=== PATIENT | female | born 1955 | race Caucasian/White ===

== ENCOUNTER 2017-12-19 18:41 | Emergency (ER) | payer OTHER, SELFPAY ==
[2017-12-19 18:42] VITALS: BP 151/86; PULSE 76; RESP 15; TEMP 36.4; O2SAT 99; BMI 21.4
--- NOTE | 2017-12-19 19:06 | EKG12_ITS ---
Test Reason : DIZZINESS Blood Pressure : / mmHG Vent. Rate : 076 BPM Atrial Rate : 076 BPM P-R Int : 192 ms QRS Dur : 090 ms QT Int : 380 ms P-R-T Axes : 060 -39 072 degrees QTc Int : 427 ms Normal sinus rhythm Left axis deviation Abnormal ECG Confirmed by ZAK CHURCH, TAYLA ([id number]), development editor HALIE PABON ([id number]) on 12/21/2017 11:25:58 AM Referred By: DR BOURGEOIS Confirmed By:TAYLA CRESPO MD
[2017-12-19] MEDS: 0.9% Normal Saline 1,000 ML 1000 ML IV (19:27)
[2017-12-19] MEDS: Ondansetron 4 MG/2 ML Vial IV (19:27)
[2017-12-19 19:30] LABS: Absolute Lymphocyte Count 2.15 X10^3/ul (0.83-4.51); Absolute Neutrophil Count 4.5 X10^3/uL (2.0-7.7); Basophil# 0.02 X10^3/uL; Basophil% 0.3 % (0-1); Eosinophil# 0.09 X10^3/uL; Eosinophils% 1.2 % (0-5); Hematocrit 38.1 % (37-47); Hemoglobin 13.1 g/dl (12.0-15.0); Lymphocyte # 2.15 X10^3/ul (4.0); Lymphocyte % 28.9 % (19-41); Mean Corp Hgb Conc 34.4 g/gl (32-36); Mean Corpuscular Hgb 32.1 pg (27.0-32.0); Mean Corpuscular Volume 93.4 fL (81-99); Mean Platelet Vol. 9.7 fl (6.2-12.0); Monocyte# 0.67 X10^3/uL; Neutrophil # 4.51 X10^3/uL (2.7-7.7); Neutrophil % 60.6 % (47-70); POSITIVE COUNT NO; POSITIVE DIFFERENTIAL NO; POSITIVE MORPHOLOGY NO; Platelet Count 188 K/mm3 (150-450); RBC Distribution Width CV 13.3 % (11.6-14.6); RBC Distribution Width SD 45.1 fl (35.1-43.9); Red Blood Count 4.08 M/mm3 (4.2-5.4); White Blood Count 7.4 K/mm3 (4.4-11.0)
[2017-12-19 19:31] VITALS: BP 138/77; PULSE 71; RESP 21; O2SAT 99
[2017-12-19 19:44] LABS: Anion Gap 7 (5-15); BUN 21 mg/dL (7-18); BUN/Creat Ratio 25.3 RATIO (10-20); Calcium,Total 8.6 mg/dL (8.5-10.1); Chloride 98 mmol/L (98-107); Creatinine, Serum 0.83 mg/dL (0.55-1.02); EST Glomerular Filtration Rate 74 mL/min (>60); Est Glom Filt Rate - Afr Amer 89 mL/min (>60); Estimated Creatinine Clearance 54.87 ml/min; Glucose 99 mg/dL (74-106); Potassium 3.7 mmol/L (3.5-5.1); Sodium Level 131 mmol/L (136-145)
--- NOTE | 2017-12-19 20:24 | ED.VISSUMM ---
- ER Visit Summary Date of Service: 12/19/17 Chief Complaint: Dizzy, near syncope History of Present Illness: The patient is a 62 F who reports dizzy episodes with near syncope for the past 2 years. She states the episodes are becoming more frequent and now are occurring nearly weekly. Patient states that she gets tingling in her back at the onset of symptoms. She had previously been helped with chiropractic manipulation. She had another dizzy episode tonight. She states she laid down on the bed before she passed out. She denies palpitations or chest pain during these episodes. She is does state that her doctor had previously mentioned following up with a neurologist for further workup, but her symptoms seem to improve at that time and she never followed up with neurology. Physical Examination: Blood pressure is 151/86, temperature 97.6, heart rate 76, respiratory rate 15, pulse ox 99% on room air. Patient is sitting upright in bed. She is in no acute distress. Head neck examination reveals TMs to be clear bilaterally. Neck is supple. Heart is regular rate and rhythm. Lung sounds clear. Abdomen is soft nontender. Back examination reveals tenderness in the thoracic paraspinal muscles bilaterally. Neuro exam is unremarkable. Test Results: EKG is sinus at 76 with no sign of acute ischemia. Patient was watched on account services associate with no arrhythmias. CBC is unremarkable. Chemistry studies significant for a sodium of 131. Emergency Department Course and Treatment: Patient was given IV fluids along with Zofran. On repeat evaluation she does feel improved. She has an appointment with her primary care physician in 3 days. She will talk with him about imaging of her neck and back as we discussed MRI would be the modality of choice. She will also discuss with him the possibility of following up with a neurologist. Treatment Plan: [] Disposition: Discharge Impression: 1. Dizziness, improved 2. Near syncope This note was generated with [employer] dictation software. It may contain incorrect words, spelling, and punctuation that were not noted in review of the chart prior to signing ED Disposition - Plan for ED Patient: Chief Complaint: Dizziness Referrals: Jose Garcia DO [Primary Care Provider] -
--- NOTE | 2017-12-19 20:28 | ED.DEP ---
ED Disposition - Plan for ED Patient: Disposition: Home or Assisted Living Chief Complaint: Dizziness Instructions: ED Near Syncope Unkn, ED Dizziness UKO Prescriptions: Ondansetron [Zofran Odt] 4 mg PO Q8H PRN PRN #10 tablet PRN Reason: Nausea Referrals: Jose Garcia DO [Primary Care Provider] - Keep Griselda appointment
[2017-12-19] MEDS: Ondansetron ODT 4 MG Tablet PO (20:44)
[2017-12-19 20:51] VITALS: BP 131/79; PULSE 71; RESP 16; O2SAT 97
== END 2017-12-19 20:52 | disposition home or self-care (01) ==
PROVIDERS: Emergency Provider Emergency Medicine; Family Provider Family Medicine; PCP Family Medicine
DX: R42 Dizziness and giddiness (principal); R55 Syncope and collapse; Z87.891 Personal history of nicotine dependence
CPT/HCPCS: 80048; 85025; 93005; 96361; 96374; 99284; J7030; A4216; J2405

== ENCOUNTER → 2018-01-18 08:59 | Outpatient (CLI) | payer OTHER, SELFPAY ==
[2017-12-19 18:42] VITALS: BMI 21.4
[2018-01-18 09:18] LABS: Hematocrit 37.6 % (37-47); Hemoglobin 13.1 g/dl (12.0-15.0); Mean Corp Hgb Conc 34.8 g/gl (32-36); Mean Corpuscular Volume 94.7 fL (81-99); Mean Platelet Vol. 9.4 fl (6.2-12.0); Platelet Count 227 K/mm3 (150-450); RBC Distribution Width CV 13.1 % (11.6-14.6); RBC Distribution Width SD 44.1 fl (35.1-43.9); Red Blood Count 3.97 M/mm3 (4.2-5.4); White Blood Count 6.3 K/mm3 (4.4-11.0)
[2018-01-18 09:25] LABS: Scan Indicated on CBC? Y/N NO
[2018-01-18 09:41] LABS: Anion Gap 3 (5-15); BUN 15 mg/dL (7-18); BUN/Creat Ratio 17.7 RATIO (10-20); Calcium,Total 8.9 mg/dL (8.5-10.1); Chloride 102 mmol/L (98-107); Creatinine, Serum 0.85 mg/dL (0.55-1.02); EST Glomerular Filtration Rate 72 mL/min (>60); Est Glom Filt Rate - Afr Amer 87 mL/min (>60); Glucose 88 mg/dL (74-106); Potassium 4.4 mmol/L (3.5-5.1); Sodium Level 134 mmol/L (136-145)
--- NOTE | 2018-01-18 17:30 | PCM.TILTTABL ---
- Summary Pre Test Resting HR: 78 Pre Test Resting BP: 144/77 Minimum Test HR: 71 Maximum Test HR: 80 Minimum Test BP: 113/67 Maximum Test BP: 138/75 Physician Tilt Table Report - Patient's Physicians Primary Care Physician: Jose Garcia Indications/Diagnosis: Syncope Procedure Comments: The patient was brought to the noninvasive lab in the postabsorptive state the initial blood pressure was 144/77 mmHg with a heart rate of 78 bpm. The initial electrocardiogram demonstrated sinus rhythm with a rate of 68 bpm with a blood pressure 156/78 mmHg. The patient was then put in the 70 degree head upright tilt position with continuous EKG monitoring as well as heart rate monitoring. The patient's heart rate ranged between 71 and 80. The patient's blood pressure was also normal and the patient did not experience any symptoms. Summary: Negative head upright tilt table test.
[2018-01-18 17:49] VITALS: BP 113/67; BP 138/75; BP 144/77
== END ==
PROVIDERS: Family Provider Family Medicine; PCP Family Medicine; Referring Provider Psychiatry & Neurology Neurology; Visit Provider Psychiatry & Neurology Neurology
DX: R55 Syncope and collapse (principal)
CPT/HCPCS: 36415; 80048; 85027; 93660; J7040; A4216

== ENCOUNTER 2018-04-01 14:23 | Emergency (ER) | payer OTHER, SELFPAY ==
[2018-04-01 14:24] VITALS: BP 147/84; PULSE 82; RESP 16; TEMP 36.8; O2SAT 93; BMI 23.2
[2018-04-01] MEDS: Ondansetron 4 MG/2 ML Vial IV (14:52)
[2018-04-01] MEDS: Ketorolac 15 MG/ML Vial IV (14:52)
[2018-04-01 15:03] LABS: Absolute Neutrophil Count 3.8 X10^3/uL (2.0-7.7); Basophil# 0.01 X10^3/uL; Basophil% 0.1 % (0-1); Eosinophil# 0.09 X10^3/uL; Eosinophils% 1.3 % (0-5); Hematocrit 38.2 % (37-47); Hemoglobin 12.7 g/dl (12.0-15.0); Mean Corp Hgb Conc 33.2 g/gl (32-36); Mean Corpuscular Hgb 31.6 pg (27.0-32.0); Mean Platelet Vol. 9.9 fl (6.2-12.0); Monocyte# 0.58 X10^3/uL; Monocyte% 8.5 % (0-10); Neutrophil # 3.76 X10^3/uL (2.7-7.7); Platelet Count 213 K/mm3 (150-450); RBC Distribution Width CV 13.1 % (11.6-14.6); RBC Distribution Width SD 45.4 fl (35.1-43.9); Red Blood Count 4.02 M/mm3 (4.2-5.4); White Blood Count 6.9 K/mm3 (4.4-11.0)
[2018-04-01 15:04] LABS: POSITIVE COUNT NO; POSITIVE DIFFERENTIAL NO; POSITIVE MORPHOLOGY NO
[2018-04-01 15:12] LABS: Anion Gap 10 (5-15); BUN 14 mg/dL (7-18); BUN/Creat Ratio 16.7 RATIO (10-20); Calcium,Total 8.7 mg/dL (8.5-10.1); Chloride 103 mmol/L (98-107); Creatinine, Serum 0.84 mg/dL (0.55-1.02); EST Glomerular Filtration Rate 73 mL/min (>60); Est Glom Filt Rate - Afr Amer 88 mL/min (>60); Estimated Creatinine Clearance 54.22 ml/min; Glucose 97 mg/dL (74-106); Potassium 4.3 mmol/L (3.5-5.1); Sodium Level 138 mmol/L (136-145)
[2018-04-01 15:20] VITALS: BP 156/76; BP 163/80; BP 180/89; PULSE 67; PULSE 74; PULSE 75
[2018-04-01] MEDS: diazePAM 5 MG Tablet 2.5 MG PO (15:36)
--- NOTE | 2018-04-01 16:32 | ED.VISSUMM ---
- ER Visit Summary Date of Service: 04/01/18 Chief Complaint: Dizziness and occipital head pain History of Present Illness: The patient is a 62 F who has history of chronic vertigo. She is presently being seen by Dr. Calderón. 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 Patient states she was not told she had benign positional vertigo. She denies ringing or ears. She denies ear pain or decreased hearing. She states that she has had this problem for 2.5 years. She has had a CAT scan, MRI and other testing which were all negative. Her description of dizziness; however is lightheadedness. She does complain of occipital pain. She states she normally has pressure. Her neck is not stiff. She does report some sensitivity to light. She denies double vision, blurred vision or loss of vision. She denies trouble with speech or swallowing. She denies trouble using her arms or legs. She does not describe falling to one side. She denies hematemesis, no hematochezia. She denies fever, chills night sweats. She does report nausea without vomiting. He does report neck discomfort. He denies neck stiffness. She has no other complaints. Physical Examination: Vital signs noted and blood pressure is slightly elevated at 147/84. Head is atraumatic normocephalic. Pupils are equal round reactive. Extraocular muscles are intact. Funduscopic exam reveals normal cup-to-disc ratio. There is no papilledema. There is no tenderness over the temporal arteries. TMs are pearly white with landmarks noted. Nares patent with no drainage. Posterior pharynx without erythema or exudate. Uvula is midline. There is no dysphonia or dysphasia. Trachea is midline. There is no stridor with auscultation of the neck. Neck is supple. Heart is regular without murmur, gallop or rub. S1 and S2 are normal. Lungs are clear to auscultation with good movement of air bilaterally. Patient is alert and oriented ?3. Motor is 5 over 5. Sensory is intact. DTRs are symmetric with no clonus or Babinski sign. Cranial 2 through 12 are intact. Cerebellar testing is normal. Test Results: CBC normal. Electric panels unremarkable. Emergency Department Course and Treatment: IV was established. She was treated with Toradol and Zofran. She reported improvement. Orthostatic vital signs were performed and are negative. [place]-Hallpike maneuver was performed and patient had symptoms but there is no nystagmus. She does report the dizziness resolves with her eyes closed. Patient did receive Valium p.o. since she does have a component of positional vertigo. Patient was reassessed at 1650. She has minimal vertex discomfort. The vertigo has resolved. Treatment Plan: 3-day course of Valium and follow-up with neurologist Disposition: Discharged home in stable and improved condition Impression: 1. Vertigo 2. Occipital headache This note was generated with [employer] software. It may contain incorrect words, spelling, and punctuation that were not noted in review of the chart prior to signing ED Disposition - Plan for ED Patient: Disposition: Home or Assisted Living Instructions: ED BPV Vertigo Prescriptions: Diazepam [Valium] 2 mg PO TID #10 tab Referrals: Jose Garcia DO [Primary Care Provider] - Dario Logan MD [STAFF PHYSICIAN] - 1 Week
[2018-04-01 16:39] LABS: Erythrocyte Sedimentation Rate 25 mm/hr (0-30)
[2018-04-01 17:06] VITALS: BP 154/72; PULSE 75; RESP 17; O2SAT 99
--- NOTE | 2018-04-01 17:06 | ED.RN ---
IV DC'ED, CATHETER INTACT, SMALL GAUZE DRESSING PLACED. DISCHARGE INSTRUCTIONS GIVEN TO AND REVIEWED WITH PATIENT, PATIENT DENIES QUESTIONS OR CONCERNS AND VOICES UNDERSTANDING OF DISCHARGE INSTRUCTIONS. PT AMBULATES OUT OF ROOM WITHOUT ISSUE.
== END 2018-04-01 17:07 | disposition home or self-care (01) ==
PROVIDERS: Emergency Provider Emergency Medicine; Family Provider Family Medicine; PCP Family Medicine
DX: R42 Dizziness and giddiness (principal); R51 Headache; Z72.0 Tobacco use; M54.2 Cervicalgia; R11.0 Nausea
CPT/HCPCS: 80048; 85025; 85652; 96374; 96375; 99284; A4216; J2405

== ENCOUNTER → 2018-05-13 07:54 | Outpatient (CLI) | payer OTHER, SELFPAY ==
--- NOTE | 2018-05-13 08:01 | CDU_ITS ---
Reason For Study: DIZZINESS Rt. Velocities/BP Lt. Velocities/BP Prox CCA 86.8/21.7 cm/sec. Prox CCA 97.9/18.8 cm/sec. Mid CCA 88.5/22.3 cm/sec. Mid CCA 93.8/19.3 cm/sec. Dist CCA 79.2/21.1 cm/sec. Dist CCA 83.3/17.0 cm/sec. Prox ICA 90.3/17.0 cm/sec. Prox ICA 93.2/27.6 cm/sec. Mid ICA 80.9/23.5 cm/sec. Mid ICA 92.0/34.0 cm/sec. Dist ICA 93.8/25.7 cm/sec. Dist ICA 108.0/32.2 cm/sec. Rt. ICA/CCA = 1.1. Lt. ICA/CCA = 1.2. Prox ECA 96.2/15.8 cm/sec. Prox ECA 97.9/18.2 cm/sec. Rt. Vert. 53.4/15.2 cm/sec. Lt. Vert. 50.4/15.8 cm/sec. Right Extracranial There is no significant atherosclerotic plaque noted in the right common carotid artery. There is no significant atherosclerotic plaque noted in the right internal carotid artery. There is no significant atherosclerotic plaque noted in the right external carotid artery. Antegrade flow is noted in the right vertebral artery. Left Extracranial There is intimal thickening but no significant atherosclerotic plaque noted in the left common carotid artery. There is intimal thickening but no significant atherosclerotic plaque noted in the left internal carotid artery. There is heterogeneous, irregular atherosclerotic plaque noted in the left external carotid artery. Antegrade flow is noted in the left vertebral artery. Procedure Carotid Duplex [id number]. Exam performed in department. Interpretation Summary No significant atherosclerotic plaque or stenosis noted in the internal carotid arteries bilaterally. Flow within the vertebral arteries is antegrade bilaterally. Ordering Physician: Dario Logan Referring Physician: Dario Logan Performed By: Lucero Cardoso RVT
== END ==
PROVIDERS: Family Provider Family Medicine; PCP Family Medicine; Referring Provider Psychiatry & Neurology Neurology; Visit Provider Psychiatry & Neurology Neurology
DX: R55 Syncope and collapse (principal)
CPT/HCPCS: 93880; 95819

== ENCOUNTER 2018-05-13 12:30 | Outpatient (RCR) | payer OTHER, SELFPAY ==
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
--- NOTE | 2018-04-06 13:36 | HP.PTREVAL ---
Dario Logan MD, It has been my pleasure to treat PAMELA FINK over the last 5 visits for vertigo, cervicogenic possibly, BPV. Please see the progress note below for an update on the physical therapy plan of care! Subjective: Was clean and good to go, working out again, VNG was clean and neuro released. Then had dizzy spell this past wednesday while dusting dresser and went to ER. Pt scheduled back in to PT prior to seeing neuro next week. Did no testing in hospital b/c she had it prior. Been dizzy ever since wednesday. TO Dr. Logan Wednesday. Objective/Function: neck ROM min limited in rotation and painful L 55 degrees, ext is 45 and very tender in L subocc muscles. Oculomotor is unremarkable except VOR gets challenging after 30 sec and makes her dizzy. - B hallpike and - roll test today. Plan Plan: Pt to see doctor Wednesday due to her suddenly worsening symptoms after being good for a long time. She will do vOR ex and plan in PT is to progress to cervical STM, US and ROM/stretching if no other treatment waraanted by doctor as wella s monitor and progress VOR. Pt to call after doctor visit and likely 2x/week for 2-4 for neck. Goals Goal 1:: Abolish vertigo Goal Time Frame: 4-6 Weeks Goal Progress: Progressing Goal 2:: Neck pain and BAILEY 75% improved. Goal Time Frame: 4-6 Weeks Goal Progress: Goal Met Anticipated Interventions Patient/Client Instruction: Educate patient on: Condition, Plan of Care For the Purpose of:: To decrease pain, To increase tolerance to activity/condition/position Therapeutic Exercise to Include: Postural training Comment: positional, adaptation, ROM neck For the Purpose of:: To increase ROM, To increase tolerance to activity/condition/position, To decrease level of supervision to perform tasks Manual Therapy Techniques to Include: Passive ROM, Soft tissue mobilization For the Purpose of:: To decrease pain, To increase ROM Please do not hesitate to contact me at [phone] by phone or if you have questions or concerns regarding this new plan of care! Sincerely, Randal Guadalupe, DPT, OCS, CSCS
--- NOTE | 2018-04-15 10:03 | HP.PTREVAL ---
Dario Logan MD, It has been my pleasure to treat PAMELA FINK over the last 6 visits for vertigo, cervicogenic possibly, BPV. Please see the progress note below for an update on the physical therapy plan of care! Subjective: Doing OK, minimal symptoms of dizzyness but present. Doctor wants us to treat the neck Objective/Function: good c/s ROM but very tender R c/s paraspinals. Plan Plan: 2x/week for 3-6 weeks. 1. US R paraspinals. 2. stretch R necka dn teach for HEP. 3. manual traction progress to supine. 4. monitor home c/s retraction effects and postural strength cervical strength. 4. sTM to R c/s Goals Goal 1:: Abolish vertigo Goal Time Frame: 4-6 Weeks Goal Progress: Progressing Goal 2:: Neck pain and BAILEY 75% improved. Goal Time Frame: 4-6 Weeks Goal Progress: appropriate Goal 3:: Pateint feel 90% back to normal from neck and vertigenous feelings. Goal Time Frame: 4-6 Weeks Goal Progress: new goal Anticipated Interventions Patient/Client Instruction: Educate patient on: Condition, Plan of Care For the Purpose of:: To decrease pain, To increase tolerance to activity/condition/position Therapeutic Exercise to Include: Postural training Comment: positional, adaptation, ROM neck For the Purpose of:: To increase ROM, To increase tolerance to activity/condition/position, To decrease level of supervision to perform tasks Manual Therapy Techniques to Include: Passive ROM, Soft tissue mobilization For the Purpose of:: To decrease pain, To increase ROM Please do not hesitate to contact me at [phone] by phone or if you have questions or concerns regarding this new plan of care! Sincerely, Randal Guadalupe, DPT, OCS, CSCS
--- NOTE | 2018-05-15 10:09 | EEG ---
- Electroencephalogram Date of service 05/13/2018 History EEG is being done in this 63 yr F to rule out seizures EEG Description: This is an 18 channel EEG with 10-20 lead placement system. Bipolar montages, Referential and Circumferential montages were reviewed. Photic stimulation and Hyperventilation were performed. The posterior dominant rhythm is 10 HZ synchronous, symmetric, reacting to eye opening and closing. Photic stimulation elicited normal driving response but no abnormal photoparoxysmal response, Hyperventilation did not elicit any abnormal photoparoxysmal response. Sleep was identified. There is no abnormal background slowing noted. There was no epileptiform discharges or electrographic seizures noted during this recording. EEG Interpretation This is a normal awake and asleep EEG. There is no epileptiform discharges or electrographic seizures noted during the record.
--- NOTE | 2018-06-01 13:38 | HP.PTDCSUM_ITS ---
HP - PT D/C Summary It has been my pleasure to treat PAMELA FINK under orders from Dario Logan MD, for the diagnosis of vertigo, cervicogenic possibly, BPV for a total of 14 visit(s). Discharge Date: Please see the following information for a summary of their discharge status. - Subjective Subjective: Better, 92% better. Just a couple glitches here and there. No reason but numerous quick movements per day may cause it. - Pain neck/head pain Pain Intensity (Out of 10): Unrated - Overall Improvement % Improvement: 92 - Objective Objective/Function: dam tender assistant R UT adn into cervical paraspinals. VOR causes symptoms with head movement but not on stool turning full body without neck movement. Full UE and cervical AROM without increased pain. Palpation to knot R UT seems to bring on transient symptoms. OVERALL MUCH BETTER AND WISHES TO TRY TO CONTINUE ON OWN WITH STRETCHES. - Goals Goal 1:: Abolish vertigo Goal Progress: Progressing Goal 2:: Neck pain and BAILEY 75% improved. Goal Progress: appropriate Goal 3:: Pateint feel 90% back to normal from neck and vertigenous feelings. Goal Progress: new goal - Plan Plan: Pt called and cancelled f/u stating she was doing better. Will discontinue at this point as patient is doing well at 92% better at last visit and doing home adaptation exercises. - D/C Information If there are questions or concerns regarding this patient's physical therapy, please feel free to call me at [phone]. Thank you for the referral of this patient. Sincerely, Randal Guadalupe, DPT, OCS, CSCS
== END 2018-05-13 19:00 | disposition home or self-care (01) ==
LOC: PT 12:30
PROVIDERS: Family Provider Family Medicine; PCP Family Medicine; Referring Provider Psychiatry & Neurology Neurology; Visit Provider Psychiatry & Neurology Neurology
DX: R42 Dizziness and giddiness (principal); M54.2 Cervicalgia; M50.30 Other cervical disc degeneration, unspecified cervical region
CPT/HCPCS: 97012; 97035; 97110; 97140; 97162; 97530

== ENCOUNTER 2019-04-12 15:23 | Emergency (ER) | payer OTHER, SELFPAY ==
[2019-04-12] VITALS (7 sets, daily range): BP systolic 143–161; BP diastolic 70–94; PULSE 64–85; RESP 17–21; TEMP 36.5–36.9; O2SAT 94–98; BMI 21.9
--- NOTE | 2019-04-12 15:36 | EKG12_ITS ---
Test Reason : WEAKNESS Blood Pressure : / mmHG Vent. Rate : 072 BPM Atrial Rate : 072 BPM P-R Int : 192 ms QRS Dur : 086 ms QT Int : 406 ms P-R-T Axes : 069 003 075 degrees QTc Int : 444 ms Normal sinus rhythm Normal ECG Confirmed by AMADOR PACKER ([id number]), video editor YOSSI HUERTA ([id number]) on 04/17/2019 3:57:13 PM Referred By: JOSE Confirmed By:AMADOR PACKER
--- NOTE | 2019-04-12 15:36 | RAD_ITS ---
STUDY: X-RAY CHEST REASON FOR EXAM: Female, 64 years old. SHORTNESS OF BREATH, WEAKNESS, FATIGUE. TECHNIQUE: Single AP portable view of the chest. COMPARISON: Comparison is made with prior examination of October 25, 2016. FINDINGS: Hyperinflation. Azygos lobe. Scattered calcified granulomas. There is no demonstrated pleural abnormality. Normal size heart. Normal mediastinum and suze. Normal visualized pulmonary arteries. There is atherosclerotic calcification of the aortic arch with tortuosity. Normal visualized thoracic spine. Normal visualized ribs, clavicles, and shoulders. There is no demonstrated abnormality of the visualized soft tissue structures of the upper abdomen. RAD/Chest 1 View (Portable) IMPRESSION: No acute abnormality is seen. Electronically Signed: Bebeto Reyes, at 15:56 EST , Service support ,
--- NOTE | 2019-04-12 15:37 | ED.VISSUMM ---
- ER Visit Summary Date of Service: 04/12/19 Chief Complaint: Weakness, cough History of Present Illness: The patient is a 64 F who presents with weakness and cough. She has had this for about 1 week. She went to an urgent care this week and got doxycycline for pneumonia. She denies a fevers but is felt very chilled. She aches in her back and in her legs. She feels generally weak overall. No slurred speech or facial droop. She did not get a flu shot this year. Has not taken any Motrin or Tylenol today. Physical Examination: Vital signs reviewed. HEENT exam unremarkable. Heart is regular rate and rhythm without murmurs. Lungs are clear to auscultation. Abdomen is soft and nontender. Extremities reveal no edema. Skin exam normal. Neurologic exam shows diffuse overall weakness. No lateralizing symptoms. Test Results: EKG was sinus rhythm with rate of [address] changes. Chest x-ray normal. CBC normal. Chemistries normal except for sodium of 132. Liver enzymes normal. Troponin normal. Lactate normal. Urinalysis normal. Influenza negative. Emergency Department Course and Treatment: The patient was given IV fluids and Tylenol. She had a hard time ambulating because of her weakness. I do not see any acute causes for this patient's weakness. She is able to ambulate on her own. I do not feel she requires any admission at this time. I will give her a PCP to follow-up with since her current 1 retired Treatment Plan: [] Disposition: Discharge Impression: Generalized weakness This note was generated with [employer] dictation software. It may contain incorrect words, spelling, and punctuation that were not noted in review of the chart prior to signing ED Disposition - Plan for ED Patient: Disposition: Home or Assisted Living Instructions: WEAKNESS, Unk Cause Referrals: Francisco Carty MD [STAFF PHYSICIAN] -
[2019-04-12] MEDS: 0.9% Normal Saline 1,000 ML 250 ML IV (16:07)
[2019-04-12 16:11] LABS: Absolute Lymphocyte Count 2.34 X10^3/uL (0.83-4.51); Absolute Neutrophil Count 3.4 X10^3/uL (2.0-7.7); Basophil# 0.02 X10^3/uL; Basophil% 0.3 % (0-1); Eosinophil# 0.02 X10^3/uL; Eosinophils% 0.3 % (0-5); Hematocrit 40.8 % (37-47); Hemoglobin 14.1 g/dL (12.0-15.0); Lymphocyte # 2.34 X10^3/ul (4.0); Lymphocyte % 37.8 % (19-41); Mean Corp Hgb Conc 34.6 g/dL (32-36); Mean Corpuscular Hgb 32.1 pg (27.0-32.0); Mean Corpuscular Volume 92.9 fL (81-99); Mean Platelet Vol. 9.8 fl (6.2-12.0); Monocyte# 0.43 X10^3/uL; Monocyte% 6.9 % (0-10); NRBC Flagged by Analyzer 0 % (0-5); Neutrophil # 3.37 X10^3/uL (2.7-7.7); Neutrophil % 54.5 % (47-70); POSITIVE MORPHOLOGY YES; Platelet Count 196 K/mm3 (150-450); RBC Distribution Width CV 12.6 % (11.6-14.6); RBC Distribution Width SD 43.1 fl (35.1-43.9); Red Blood Count 4.39 M/mm3 (4.2-5.4); White Blood Count 6.2 K/mm3 (4.4-11.0)
[2019-04-12 16:15] LABS: Prothrombin Time (Protime)PT. 12.9 SECONDS (11.7-14.9)
[2019-04-12 16:16] LABS: Partial Thromboplast Time 28.1 Seconds (24.1-36.2)
[2019-04-12] MEDS: Ketorolac 15 MG/ML Vial IV (16:19)
[2019-04-12 16:20] LABS: AST(SGOT) 27 U/L (15-37); Alanine Aminotransfer ALT/SGPT 32 U/L (13-56); Alkaline Phosphatase 89 U/L (45-117); Anion Gap 8 (5-15); BUN 16 mg/dL (7-18); BUN/Creat Ratio 18.5 RATIO (10-20); Calcium,Total 9.5 mg/dL (8.5-10.1); Chloride 100 mmol/L (98-107); Creatinine, Serum 0.87 mg/dL (0.55-1.02); EST Glomerular Filtration Rate 70 mL/min (>60); Est Glom Filt Rate - Afr Amer 85 mL/min (>60); Estimated Creatinine Clearance 50.99 ml/min; Globulin 3.9 g/dL (2.2-4.2); Glucose 95 mg/dL (74-106); Potassium 4.3 mmol/L (3.5-5.1); Protein, Total 7.9 g/dL (6.4-8.2); Sodium Level 132 mmol/L (136-145)
[2019-04-12 16:27] LABS: Lactic Acid 1.2 mmol/L (0.4-1.9)
[2019-04-12 16:29] LABS: Differential Indicated SCAN CRITERIA MET
[2019-04-12 16:58] LABS: Atypical Lymphocyte RARE %; Differential Comment SCANNED
[2019-04-12] MEDS: Ondansetron 4 MG/2 ML Vial IV (17:03)
[2019-04-12 17:05] LABS: Mucous, Urine 0 SEEN /hpf (<or=2+); Red Blood Cells-Urine 0 SEEN /hpf (0-5); White Blood Cells 0 SEEN /hpf (0-5)
[2019-04-12 17:13] LABS: Color, Urine Yellow (Yellow); Glucose, Dipstick Normal (Normal); Ketone-Dipstick Negative (Negative); Leukocyte Esterase-Dipstick 25 /ul (Negative); Nitrite-Dipstick Negative (Negative); Occult Blood-Urine 25 /ul (Negative); Protein-Dipstick Negative (Negative); Urine Bilirubin Dipstick Negative (Negative); Urine Clarity Clear (Clear); Urine Urobilinogen Normal (Normal)
[2019-04-12 17:28] LABS: Bacteria RARE /hpf (None Seen); Squamous Epithelial Cells - UA 0-5 SEEN /hpf (5-10)
== END 2019-04-12 19:47 | disposition home or self-care (01) ==
PROVIDERS: Emergency Provider Emergency Medicine
DX: R53.1 Weakness (principal); R05 Cough; I10 Essential (primary) hypertension; J18.9 Pneumonia, unspecified organism
CPT/HCPCS: 71045; 80053; 81001; 83605; 84484; 85025; 85610; 85730; 87040; 87086; 87804; 93005; 99284; J7030; A4216; J2405

== ENCOUNTER 2019-05-17 12:00 | Outpatient (RCR) | payer OTHER, SELFPAY ==
[2019-04-12 15:24] VITALS: BMI 21.9
--- NOTE | 2019-05-11 15:56 | HP.PTEVAL_ITS ---
Patient's Visit Information PAMELA SAUER is a 64 year old F referred to Physical Therapy by Sherman Rocha DO with a diagnosis of Right Hip Pain. Date of Evaluation: 05/11/19 Physical Therapist: Lidia Gunn DPT - Visit Plan Frequency: 2x /Week Duration: 4 Weeks Plan: Focus on LE and core strength/stabilization- gentle hip ROM. - Subjective Subjective: She has severe right groin pain- she was walking on her treadmill a lot and then had insious onset- did not feel any pops or falls. She is into week 6- which has shown some improvement. Had x-rays which showed mild OA. No anti-inflam meds or injections. She is taking about 4 advil a day- was using numbing creams but has not used the creams this week. Purchased a thigh support which helped then made it worse. Pain is located in the groin and radiates to the knee- feels like she can't bend the knee. Agg: walking, changing positions. Eases: advil- no position is better than another. 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 Wears tennis shoes all day. Worst: 10/10 Describes the pain as dull and achy all the time but it does have sharp pains. Starts about 2 hours after she gets up it starts. Triggered by sitting in her car. Best: 1-2/10. Feels really tight and pulling. Reports no history of back pain or problems. No N/T- no loss or change in bowel or bladder. No falls or buckling of the knee- no pain on the left side. 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 - Objective Posture: FH, RS increased kyphosis. Gait: slightly antalgic- decreased stance on the right LE- slow sharon. HR/TR: able with UE A. SLS: weight shift but does not SLS due to fear of pain. Palpation: not tender to touch. ROM: Hip: flexion: 90 degrees,extn: neutral, IR/ER: full ROM with pain, Abd: WNL. Knee/Ankle: WNL. Strength: Core: fair minus, Hip: 4-/5, Knee:4+/5, Ankle: 5/5. Flex: HS: moderate, Gastroc: moderate. Special Test: Scour: positive, KALEN: positive - Goals Goal 1:: Patient will be I with HEP and progression Goal Time Frame: 4-6 Weeks Goal 2:: Patient will ambualte >300 feet with a normalized gait pattern Goal Time Frame: 4-6 Weeks Goal 3:: Patient will demo full AROM of the right hip with 0/10 pain Goal Time Frame: 4-6 Weeks Goal 4:: Patient will report 0/10 pain for 1 week Goal Time Frame: 4-6 Weeks - Rehabilitation Potential Physical Therapy Diagnosis: Patient presents with hypomobility- she has decreased painfree ROM, strength, flex and muscular endurance leading to increased pain with ADL's. Rehabilitation Potential: Fair - Anticipated Interventions Therapeutic Exercise to Include: Strength training, Endurance training, Balance training, Coordination, Agility training, Body mechanics, Postural training, Flexibilty training, Gait and locomotor training, Neuromotor development, Dynamic Lumbar Stabilization, Scapular Strength/Stabilization For the Purpose of:: To improve muscle performance and motor function TENS: Yes Cryotherapy (ice pack, ice massage): Yes Thermo therapy (hot pack): Yes Thank you for the opportunity to evaluate your patient. For Medicare and Medicare HMO plans, please review the plan of care and approve it. It will need to be FAXED BACK to us at [phone] for Medicare purposes. For Medicare only, by signing this I certify the plan of care. Please let me know if there are questions or concerns regarding this plan of care. Physician Signature: Date:
--- NOTE | 2019-07-11 11:39 | HP.PT.NRP ---
PAMELA SAUER was seen in my office for initial evaluation on 05/11/19. The following Plan of Care was established for this patient: Initial Frequency: 2x /Week Initial Duration: 4 Weeks Therapeutic Exercise to Include: Strength training, Endurance training, Balance training, Coordination, Agility training, Body mechanics, Postural training, Flexibilty training, Gait and locomotor training, Neuromotor development, Dynamic Lumbar Stabilization, Scapular Strength/Stabilization For the Purpose of:: To improve muscle performance and motor function TENS: Yes Cryotherapy (ice pack, ice massage): Yes Thermo therapy (hot pack): Yes This patient was last seen in our office . Pertinent comments regarding their Physical therapy will appear below: Patient reports that she has had no pain for 4 weeks- appropriate to be d/c at this time. At this point I will be discontinuing this patient from physical therapy. I would be happy to see this patient again in the future if found appropriate by the physician. Thank you! Lidia Gunn DPT
== END 2019-05-17 19:00 | disposition home or self-care (01) ==
LOC: PT 12:00
PROVIDERS: PCP Student in an Organized Health Care Education/Training Program; Referring Provider Student in an Organized Health Care Education/Training Program; Visit Provider Student in an Organized Health Care Education/Training Program
DX: M19.90 Unspecified osteoarthritis, unspecified site (principal); R10.31 Right lower quadrant pain
CPT/HCPCS: 97110; 97161

== ENCOUNTER → 2020-04-18 06:29 | Outpatient (CLI) | payer BC, MEDICARE, SELFPAY ==
[2019-04-12 15:24] VITALS: BMI 21.9
--- NOTE | 2020-04-18 06:41 | MRI_ITS ---
STUDY: MRI BRAIN WITH AND WITHOUT CONTRAST (ATTENTION INTERNAL AUDITORY CANALS - I.A.C.''s) REASON FOR EXAM: Female, 65 years old. ataxia,vertigo, tinnitus right ear TECHNIQUE: Standardized multiplanar fat and water weighted pulse sequences were obtained. IV 10ml Dotarem was administered for the contrast portion of the examination. COMPARISON: None. FINDINGS: Normal bilateral temporal bones. Normal bilateral internal auditory canals. There is no demonstrated intracanalicular or cisternal vestibular schwannoma (acoustic neuroma). There is no enhancement of the bilateral VIIth or VIIIth cranial nerves. Normal bilateral cochlea, vestibules and semicircular canals. Normal size of the ventricles and extra-axial spaces for the patient''s age. Normal white matter tracts of the supratentorial brain. There is no evidence for recent intracranial ischemia or other cause of cytotoxic edema on diffusion weighted imaging (DWI). Normal bilateral basal ganglia. Normal thalami. Normal flow voids within the major intracranial circulation suggesting patency by spin echo criteria. Normal venous enhancement. There is no enhancing intra-axial or extra-axial abnormality. There is no extra-axial fluid accumulation. Normal sella turcica, pituitary gland, infundibular stalk, optic chiasm and hypothalamus. Normal tectal plate and pineal gland. Normal midbrain, pattie and medulla. Normal cerebellum. Normal basal cisterns. No demonstrated orbital abnormality, within the constraints of a routine brain study. Normal visualized paranasal sinuses. Normal calvarium and skull base. Normal visualized soft tissue structures. Normal visualized upper cervical spine. MRI/Brain W/WO Contrast IMPRESSION: Normal unenhanced and enhanced MRI of the bilateral internal auditory canals (I.A.C''s). Electronically Signed: Antoni Cortez MD at 11:16 EST Tel , Service support ,
[2020-04-18 07:41] LABS: CREATININE FINGERSTICK 1.1 mg/dL (0.55-1.02)
== END ==
PROVIDERS: PCP Student in an Organized Health Care Education/Training Program; Referring Provider Otolaryngology; Visit Provider Otolaryngology
DX: Z01.812 Encounter for preprocedural laboratory examination (principal); R27.0 Ataxia, unspecified
CPT/HCPCS: 70553; A9575

== ENCOUNTER 2020-05-26 13:51 | Emergency (ER) | payer MEDICARE, SELFPAY ==
[2019-04-12 15:24] VITALS: BMI 21.9
[2020-05-26 13:52] VITALS: BP 179/81; PULSE 76; RESP 16; TEMP 36.3; O2SAT 96; BMI 21.9
--- NOTE | 2020-05-26 14:31 | CT_ITS ---
STUDY: CT BRAIN WITHOUT CONTRAST REASON FOR EXAM: Female, 65 years old. R sided head pressure, dizzy RADIATION DOSAGE (If Supplied By Facility): CTDIvol = ( 44.99 ) mGy, DLP = ( 779.24 ) mGycm TECHNIQUE: Transaxial CT imaging of the brain was performed without administration of intravenous contrast material. Individualized dose optimization techniques were used for this CT. COMPARISON: 04/18/2020. FINDINGS: There is no intra-/extra-axial fluid collection, mass effect, or midline shift. The lima/white matter junction is preserved. The basal cisterns are patent. The paranasal sinuses and mastoid air cells are clear. The calvarium is intact. CT/Brain/Head without Contrast IMPRESSION: No acute intracranial finding. Electronically Signed: Werner Garcia MD at 15:56 EDT Tel , Service support ,
--- NOTE | 2020-05-26 14:31 | EKG12_ITS ---
Test Reason : Blood Pressure : / mmHG Vent. Rate : 069 BPM Atrial Rate : 069 BPM P-R Int : 176 ms QRS Dur : 090 ms QT Int : 402 ms P-R-T Axes : 076 -44 075 degrees QTc Int : 430 ms Poor data quality, interpretation may be adversely affected Sinus rhythm with Fusion complexes Left axis deviation Abnormal ECG When compared with ECG of 12-APR-2019 16:00, Fusion complexes are now Present QRS axis Shifted left Confirmed by ELLA CHURCH, CONNER ([id number]), index editor LAURA HAYS ([id number]) on 06/07/2020 3:03:27 PM Referred By: CARLTON Confirmed By:TAMIKO JARAMILLO MD
[2020-05-26] MEDS: Midazolam 2 MG/2 ML Syringe 0.5 MG IV (14:42)
[2020-05-26 15:03] LABS: Absolute Lymphocyte Count 1.37 X10^3/uL (0.83-4.51); Absolute Neutrophil Count 6.7 X10^3/uL (2.0-7.7); Basophil# 0.01 X10^3/uL; Basophil% 0.1 % (0-1); Eosinophil# 0.01 X10^3/uL; Eosinophils% 0.1 % (0-5); Hemoglobin 12.6 g/dL (12.0-15.0); Lymphocyte # 1.37 X10^3/ul (4.0); Lymphocyte % 16.5 % (19-41); Mean Corp Hgb Conc 34.1 g/dL (32-36); Mean Corpuscular Hgb 32.6 pg (27.0-32.0); Mean Corpuscular Volume 95.6 fL (81-99); Mean Platelet Vol. 10.3 fl (6.2-12.0); Monocyte# 0.15 X10^3/uL; Monocyte% 1.8 % (0-10); NRBC Flagged by Analyzer 0 % (0-5); Neutrophil # 6.74 X10^3/uL (2.7-7.7); Neutrophil % 81.4 % (47-70); Platelet Count 237 K/mm3 (150-450); RBC Distribution Width CV 13.1 % (11.6-14.6); RBC Distribution Width SD 46.2 fl (35.1-43.9); Red Blood Count 3.87 M/mm3 (4.2-5.4); White Blood Count 8.3 K/mm3 (4.4-11.0)
--- NOTE | 2020-05-26 15:04 | ED.VIS.GEN ---
History of Present Illness Chief Complaint: Dizziness Informant: Patient, Family Narrative: Patient is a 65-year-old female with a past medical history of vertigo who presents to the emergency department for right-sided head pressure, ear pain and ringing and dizziness. She states that she has been in bed unable to get up over the past few days. She has been nauseous but no episodes of vomiting. Her dizziness is more of a room spinning sensation and does get resolved with closing her eyes. Turning her head a certain way also seems to aggravate it. She feels like she has a very tight pressure in the back of her right side of her neck rating up into the back of her scalp. Her family nurse practitioner placed her on prednisone as well as a muscle relaxer. This has not been giving her significant relief. She was hearing a whooshing sound in her ear which has since resolved. She did have this before in the past and had an MRI performed by an ENT physician. She denies any fevers or chills. No chest pain or shortness of breath. She did have a near syncopal episode which she believes was due to the pain. Past Medical History - Allergies and Home Meds Allergies/Adverse Reactions: Allergies amoxicillin Allergy (Verified 05/26/20 13:52) Hives clindamycin Adverse Reaction (Verified 05/26/20 13:52) Abd cramps/diarrhea codeine Adverse Reaction (Verified 05/26/20 13:52) Other Primary Care Physician: Sherman Rocha DO [Primary Care Provider] - 1 Day Prior records reviewed: Yes Surgical History: noncontributory Smoking Status: Current every day smoker Review of Systems All systems negative except as indicated General: Denies: Chills, Fever, Sweats Eyes: Denies: Visual changes - bilaterally, Diplopia ENT: Reports: Right ear pain. Denies: Rhinorrhea, Sore throat Cardiovascular: Denies: Chest pain, Palpitations Respiratory: Denies: Dyspnea, Cough, Dyspnea on exertion Gastrointestinal: Reports: Nausea. Denies: Abdominal pain, Vomiting, Diarrhea, Melena, Hematochezia Genitourinary: Denies: Dysuria, Hematuria, Frequency Musculoskeletal: Denies: Back pain, Extremity Pain Skin: Denies: Rash, Wounds Neurological: Reports: Headache, - - Dizziness. Denies: Weakness, Numbness Physical Exam Vital Signs/Narrative: Vital Signs Temp Pulse Resp BP Pulse Ox 05/26/20 13:52 97.4 F L 76 16 179/81 H 96 Inital Vital Signs reviewed: Yes General: Well nourished, Well developed, No Acute Distress Head: Normocephalic, Atraumatic Eyes: Perrl, EOMI ENT: Moist mucous membranes, No rhinorrhea, TM's clear, - - No surrounding skin changes. No mastoid tenderness. Neck: Supple, - - Tenderness to right posterior paraspinal musculature of the cervical spine. There is muscle spasm present. No midline spine tenderness. Cardiovascular: Regular rate, Regular rhythm, No murmurs Respiratory: No distress, CTA bilaterally, Chest nontender Abdomen: Soft, Nontender, Nondistended, Normal bowel sounds Back: Nontender, Normal Inspection Extremities: Nontender, No edema Skin: Normal color, No rash Neurological: Alert, Oriented x3, Cranial nerves II-XII grossly intact, Normal Strength, Normal Sensation, - - No focal neurological deficits.. Negative for: Left side facial droop, Right side facial droop Psychological: Normal affect, Normal Mood Diagnostic/Tx/Re-eval - EKG Initial EKG Interpretation: - - Rate of 69 bpm and normal sinus rhythm. Normal intervals. Left axis deviation. No significant ST elevations or depressions. No T wave abnormalities. - Medical Decision Making Patient presents to the ED for right-sided head pressure with posterior neck pain. She is complaining of ear pain and ringing. Does have a history of vertigo and is complaining of dizziness. She has no focal deficits on physical exam. She does appear very uncomfortable holding the side of her head. CT imaging of the head is being obtained along with basic lab work. She is given a dose of Valium for the vertigo/neck pain. After the dose of Valium patient is feeling better. She is still having some mild pain so she was given a dose of Toradol. CT scan of the head did not reveal any significant acute abnormality. Lab work-up did also not show any significant acute abnormality. Her troponin is negative. She is not anemic and does not have a high white blood cell count. I did discuss potential diagnosis which could be causing this including muscle spasm of the back of the neck causing impinged nerve at the occiput. She states that she has had these exact same symptoms and has been worked up by an ear nose and throat doctor so she does not feel like she would get much benefit by following up with them. He has already had an MRI for the same complaint. At this time do not feel patient is having any acute stroke. She has had these issues before in the past. She feels like they are manageable at this time. I do recommend she follow-up with her family doctor as well as the ENT doctor. Understands and is agreeable this plan. Did discuss return precautions including any worsening dizziness, focal deficits. She is agreeable with this plan. All questions answered. She is going to continue to take her muscle relaxer and steroid at home. ED Disposition - Plan for ED Patient: Disposition: Home or Assisted Living Diagnosis: Neck pain, Head pain, Vertigo, Ear ache Instructions: ED Earache Without Infection (Adult), ED Neck Pain, ED Vertigo, Unspecified Referrals: Sherman Rocha DO [Primary Care Provider] - 1 Day
[2020-05-26 15:16] LABS: Anion Gap 6 (5-15); BUN 15 mg/dL (7-18); Calcium,Total 8.9 mg/dL (8.5-10.1); Chloride 101 mmol/L (98-107); Creatinine, Serum 0.83 mg/dL (0.55-1.02); EST Glomerular Filtration Rate 73 mL/min (>60); Est Glom Filt Rate - Afr Amer 88 mL/min (>60); Estimated Creatinine Clearance 52.73 ml/min; Glucose 122 mg/dL (74-106); Sodium Level 134 mmol/L (136-145)
--- NOTE | 2020-05-26 15:30 | RAD_ITS ---
STUDY: X-RAY CHEST REASON FOR EXAM: Female, 65 years old. Near syncope TECHNIQUE: 1 view COMPARISON: 04/12/2019. FINDINGS: Cardiomediastinal silhouette is unremarkable. Costophrenic angles are sharp. Lungs are clear. The trachea is midline. There is no pneumothorax. The bones are grossly intact. RAD/Chest 1 View (Portable) IMPRESSION: No acute cardiopulmonary process. . Electronically Signed: Werner Garcia MD at 16:19 EDT Tel , Service support ,
[2020-05-26] MEDS: Ketorolac 15 MG/ML Vial IV (16:43)
[2020-05-26 16:49] VITALS: BP 162/63; PULSE 60; RESP 15; O2SAT 97
[2020-05-26 18:02] VITALS: RESP 17
[2020-05-26 18:28] VITALS: PULSE 70; RESP 18; O2SAT 98
== END 2020-05-26 18:29 | disposition home or self-care (01) ==
PROVIDERS: Emergency Provider Emergency Medicine; PCP Student in an Organized Health Care Education/Training Program
DX: M54.2 Cervicalgia (principal); R51.9 Headache, unspecified; R42 Dizziness and giddiness; H92.01 Otalgia, right ear; M62.838 Other muscle spasm; R55 Syncope and collapse; F17.200 Nicotine dependence, unspecified, uncomplicated; Z79.899 Other long term (current) drug therapy
CPT/HCPCS: 70450; 71045; 80048; 84484; 85025; 93005; 96374; 96375; 99283; A4216

== ENCOUNTER 2020-06-13 09:30 | Outpatient (RCR) | payer BC, MEDICARE, SELFPAY ==
[2019-04-12 15:24] VITALS: BMI 21.9
--- NOTE | 2020-03-26 12:58 | HP.PTEVAL_ITS ---
Patient's Visit Information PAMELA SAUER is a 64 year old F referred to Physical Therapy by Dr. Sherman Rocha DO with a diagnosis of dizzyness neck pain.. Date of Evaluation: 03/26/20 Physical Therapist: Randal Guadalupe, TEVINT, OCS, CSCS - Visit Plan Frequency: 1-2x /Week Duration: 2-4 Weeks Plan: 1-2x/week as needed for up to 4 weeks for. 1. monitor positional dizzyness and treatments. 2. If this does not take care of neck/back pain, then we can treat that with soft tissue work and other neck ROM/manual/strength as tolerated adn needed. Next: check positional, other vistib if needed adn then determine frequncy for vertigo/back pain. - Subjective Had dizzyness since November. Her [place] drools alot and made her bend over adn turned adn that started spinning and had to sit quickly. Spinning lasted 5 minutes. Then could get up, still had some symptoms. Has been to chiropractor to work on neck and shoulders. Has kept symptoms at bay. Still daily spinning and cotninuous sensation if makes one false movement. Also has neck pain and R shoulder pain. daily. It started with dizzyness. Neck pain to 0-5/10 , worse with looking right. Sleep is not interrupted, makes her want to position proerly adn not move. Sensation of wobbly in head is the biggest problem adn is off the chart. 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 Slower. Basic ADLsa re OK, afraid to shower , does nto want to move. 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 - Pain neck/shoulder Pain Intensity (Out of 10): 4 Pain Intensity Range: 0, 5 - Objective Walks slow but steady. trasnfers bed adn chair I. Steps one rail reciprocal. Neck AROM 50 ext, 50 B rotation without pain. UE AROM WFL. Balance is good. - L hallpike elizabeth. + R hallpike for slight up torsional nystagmus with some dizzyness. Treated with R Michael and then negative R HD. 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 Goal Time Frame: 2-4 Weeks - Rehabilitation Potential Physical Therapy Diagnosis: BPPV with soft tissue involvement due to neck stiffness. Rehabilitation Potential: Good - Anticipated Interventions Patient/Client Instruction: Educate patient on: Condition, Plan of Care For the Purpose of:: To decrease pain, To increase ROM, To increase tolerance to activity/condition/position, To improve ability of physical actions for home/community/work/leisure Therapeutic Exercise to Include: Strength training, Postural training, Passive ROM, Active ROM Comment: positional and vestibular ex For the Purpose of:: To decrease swelling/inflammation, To increase ROM, To increase tolerance to activity/condition/position Manual Therapy Techniques to Include: Trigger point massage, Mobilization, Passive ROM, Soft tissue mobilization For the Purpose of:: To decrease pain Thank you for the opportunity to evaluate your patient. For Medicare and Medicare HMO plans, please review the plan of care and approve it. It will need to be FAXED BACK to us at [phone] for Medicare purposes. For Medicare only, by signing this I certify the plan of care. Please let me know if there are questions or concerns regarding this plan of care. Physician Signature: Date:
--- NOTE | 2020-04-02 11:39 | HP.PTREVAL ---
Dr. Sherman Rocha, DO, It has been my pleasure to treat PAMELA SAUER over the last 3 visits for dizzyness neck pain.. Please see the progress note below for an update on the physical therapy plan of care! Subjective: Better, 90% better. Was OK yesterday but two day ago was a bad day. Did exercises multiple times per day. Balance is OK. Doing exercises for almost a minute as neck gets tired. Wednesday was not good , had anxiety for second day of work. Side to side ex without any problems or consistent dizzyness. Objective/Function: Neck aROM rotation 72 B adn ext 60 without pain. Posture is FW head adn elevated scap R >L. Tender max to touch scapular rhomboid attachments adn UT R. reflexes UE 2/3 B. Sensation UE WNL to gross light. UE AROM and sterngth symmetrical. VOR still mildly symptomatic after 50 seconds. Plan Plan: 2x/week x 2-4 for. 1. STM to R UT and rhomboids with stretching of R UT and rhomboids. 2. Strengthening of postural muscles and neck. 3. manual traction to neck. 4. when VOR 60 seconds is asymptomatic, let EG know so he can progress [employer] vestibular ex. This new POC and todays update sent to doctor. 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 Goal Time Frame: 2-4 Weeks Anticipated Interventions Patient/Client Instruction: Educate patient on: Condition, Plan of Care For the Purpose of:: To decrease pain, To increase ROM, To increase tolerance to activity/condition/position, To improve ability of physical actions for home/community/work/leisure Therapeutic Exercise to Include: Strength training, Postural training, Passive ROM, Active ROM Comment: positional and vestibular ex For the Purpose of:: To decrease swelling/inflammation, To increase ROM, To increase tolerance to activity/condition/position Manual Therapy Techniques to Include: Trigger point massage, Mobilization, Passive ROM, Soft tissue mobilization For the Purpose of:: To decrease pain Please do not hesitate to contact me at [phone] by phone or if you have questions or concerns regarding this new plan of care! Sincerely, Randal Guadalupe, DPT, OCS, CSCS
--- NOTE | 2020-04-15 12:31 | HP.PTREVAL ---
Dr. Sherman Rocha, DO, It has been my pleasure to treat PAMELA SAUER over the last 6 visits for dizzyness neck pain.. Please see the progress note below for an update on the physical therapy plan of care! Subjective: Ear plugged up last Wednesday but was in bed with imbalance for 3 days. Saw ENT afternoon but was doing well by then. ENT did not see problem in ears and has ordered MRI of brain this to be sure it is OK. Pt thought that the PT treatment helped at first but still needed some valium over the last couple days. Not following up with neurologist anymore. Will see PCP german in May. Using heat on the spot medial to R distal shoulder blade at home at night. Her symptoms are not thinking clear at times. 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 Objective/Function: Max tender to tears on R teres minor and disatal rhomboids medial distal border of R scap. Palpable knots teres minor, distal rhomboids. Max tender. Plan Plan: please make sure we are working distal medial border scap rhomboids and out into teres minor area and lat Please do the following... MH x 5 min to R scap distal. 2x/week for 2-4 weeks. DTR and massage adn US thermal to R distal rhomboids distal medial border scap. 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 Goal Time Frame: 2-4 Weeks Anticipated Interventions Patient/Client Instruction: Educate patient on: Condition, Plan of Care For the Purpose of:: To decrease pain, To increase ROM, To increase tolerance to activity/condition/position, To improve ability of physical actions for home/community/work/leisure Therapeutic Exercise to Include: Strength training, Postural training, Passive ROM, Active ROM Comment: positional and vestibular ex For the Purpose of:: To decrease swelling/inflammation, To increase ROM, To increase tolerance to activity/condition/position Manual Therapy Techniques to Include: Trigger point massage, Mobilization, Passive ROM, Soft tissue mobilization For the Purpose of:: To decrease pain Please do not hesitate to contact me at [phone] by phone or if you have questions or concerns regarding this new plan of care! Sincerely, Randal Guadalupe, DPT, OCS, CSCS
--- NOTE | 2020-05-02 12:34 | HP.PTREVAL_ITS ---
Dr. Sherman Rocha, DO, It has been my pleasure to treat PAMELA SAUER over the last 11 visits for dizzyness neck pain.. Please see the progress note below for an update on the physical therapy plan of care! Subjective: Going the right way. Activities getting better, using phone is easier. Does not feel guarded all the time. One spasm in back last week while driving but got better. Neck can hurt if looks down for too long. Much better in thoracic area/scapular area. Reaching [place] with R can give quick sensation. No real dizzyness. Maybe slight last night for a quick second. To Dr. Rocha in June. HEP going OK and is stretching across counter at home. Objective/Function: Good ROM neck without pain, some hesitancy with looking up diagonally but no pain or symptoms, just hesitant. UE AROM WFL, some tightness persists in rhomboids, lats R. Balance is good. No c/o dizzyness with moving today. tenderness R scap border persists and slightly tight. Goals still appropriate for next 4 weeks with fair prognosis. Plan Plan: 2x next week then weekly x 2 weeks then skip a week all to wean down on Soft tissue treatment.Please continue KEMP and DTR to R scap border each session, Please ensure progressing with habituation of head movements(diagonal up and down. Also please show some gentle postural scap strength/functional strength ex with band to tolerance(ext rotation, horiz adduction, PNF diagonals flexion) and wean to HEP. 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 Goal Time Frame: 2-4 Weeks Goal Progress: met with breaks Anticipated Interventions Patient/Client Instruction: Educate patient on: Condition, Plan of Care For the Purpose of:: To decrease pain, To increase ROM, To increase tolerance to activity/condition/position, To improve ability of physical actions for home/community/work/leisure Therapeutic Exercise to Include: Strength training, Postural training, Passive ROM, Active ROM Comment: positional and vestibular ex For the Purpose of:: To decrease swelling/inflammation, To increase ROM, To increase tolerance to activity/condition/position Manual Therapy Techniques to Include: Trigger point massage, Mobilization, Passive ROM, Soft tissue mobilization For the Purpose of:: To decrease pain Please do not hesitate to contact me at [phone] by phone or Fax: if you have questions or concerns regarding this new plan of care! Sincerely, Randal Guadalupe, DPT, OCS, CSCS
--- NOTE | 2020-05-24 09:01 | HP.PTREVAL ---
Dr. Sherman Rocha, DO, It has been my pleasure to treat PAMELA SAUER over the last 16 visits for dizzyness neck pain.. Please see the progress note below for an update on the physical therapy plan of care! Subjective: Exacerbated head feeling full and off whenver she is moving. Saw doctor due to the pain that has made her miserable for last 4 days. Put on muscle relaxer and prednisone(wrist hurts). Wants her to continue therapy. Intermittent pain in R medial scap. Hurts up to 10/10 this weeka dn worse with movement. Feeling in head is mostly constant, worse with head movement and described as full and shaking snow globe. Doin gVOR and gets dizzy lasting 15 seconds. Objective/Function: Walking gingerly but safe, hesitant to move too quick. - B positional tests. VOR makes her slightly dizzy. Max tender again medial R scap in rhomboids to palpation. C/s ROM 60 B and ext 45 hesitant but able and slight increase pain R scap with all. Posture is forward head . Overall has had a setback due to unknown cause(FW head posture activity) adn appropriate to revert to what has helped her recently with fair prognosis to help agian. Goals appropriate as she has had a setback. Plan Plan: 2x/week for 3-4 weeks for. 1. US thermal to r scap rhomboids. 2. DTR, STM to same. 3. stretch neck and rhomboids with manual traction. 4. work on posture and wean gently back to strength as symptoms improve. Monitor home VOR exercises. Goals Goal 1:: Abolish vertigo adn wobbly feeling Goal Time Frame: 2-4 Weeks Goal Progress: 0 Goal 2:: Back and shoulder pain 75% improved and manageable Goal Time Frame: 2-4 Weeks Goal Progress: 0 Goal 3:: DHI score <5 Goal Time Frame: 2-4 Weeks Goal Progress: Progressing Goal 4:: Work without limitations Goal Time Frame: 2-4 Weeks Goal Progress: setback. 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 Goal Time Frame: 2-4 Weeks Goal Progress: setback Anticipated Interventions Patient/Client Instruction: Educate patient on: Condition, Plan of Care For the Purpose of:: To decrease pain, To increase ROM, To increase tolerance to activity/condition/position, To improve ability of physical actions for home/community/work/leisure Therapeutic Exercise to Include: Strength training, Postural training, Passive ROM, Active ROM Comment: positional and vestibular ex For the Purpose of:: To decrease swelling/inflammation, To increase ROM, To increase tolerance to activity/condition/position Manual Therapy Techniques to Include: Trigger point massage, Mobilization, Passive ROM, Soft tissue mobilization For the Purpose of:: To decrease pain Please do not hesitate to contact me at [phone] by phone or if you have questions or concerns regarding this new plan of care! Sincerely, Randal Guadalupe, DPT, OCS, CSCS
--- NOTE | 2020-06-13 10:33 | HP.PTDCSUM ---
It has been my pleasure to treat PAMELA SAUER referred by Dr. Sherman Rocha DO, with the diagnosis of dizzyness neck pain. for a total of 22 visit(s). Discharge Date: 06/13/20 Please see the following information for a summary of their discharge status. Subjective: I can get out of bed. Can't do much. Upper neck pain is main problem. Numbs it with lidocaine and I am kind of OK. Spot between scapula still 6-10/10 before lidocaine. Dizzyness is descirbed as unsteadiness worse wehn neck hurts. No spinning. sleep is not great but was really good not that long ago. No doctor until July 08. Not working due to pain. Much better than wehn she had to be in Er and bed most of time, but not great. On valium 2x/day for two days and valium may have made her wobbly despite helping her neck. Seeing chiropractor 3x/week adn it helps at times. neck/shoulder Pain Intensity (Out of 10): 7 thoracic spine Pain Intensity (Out of 10): 0 % Improvement: 50 Objective/Function: Neck ROM is 70 B rotation with some tightness on R, tender in R paraspinals and sub occ. Ext is 70 wihtout pain. Balance is not great per FGA. no clonus or obvious reflex problems in LE. No sensation deficits in UE/LE to gross light touch. Pt frustrated adn appropriate to contact doctor for next appropriate medical step as symptoms duration and functional deficits excessive and not improving. Goal 1:: Abolish vertigo adn wobbly feeling Goal Progress: 50% Goal 2:: Back and shoulder pain 75% improved and manageable Goal Progress: 50%, up and down. Goal 3:: DHI score <5 Goal Progress: Progressing Goal 4:: Work without limitations Goal Progress: setback. 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 Goal Progress: Not Progressing Plan: d/c, back to doctor for next step If there are questions or concerns regarding this patient's physical therapy, please feel free to call me at [phone]. Thank you for the referral of this patient. Sincerely, Randal Guadalupe, DPT, OCS, CSCS
== END 2020-06-13 19:00 | disposition home or self-care (01) ==
LOC: PT 09:30
PROVIDERS: PCP Student in an Organized Health Care Education/Training Program; Referring Provider Student in an Organized Health Care Education/Training Program; Visit Provider Student in an Organized Health Care Education/Training Program
DX: R42 Dizziness and giddiness (principal); M54.9 Dorsalgia, unspecified; M62.830 Muscle spasm of back
CPT/HCPCS: 97035; 97110; 97140; 97162; 97164; 97530

== ENCOUNTER 2020-09-04 13:59 | Emergency (ER) | payer BC, MEDICARE, SELFPAY ==
[2020-09-04 14:01] VITALS: BP 176/75; PULSE 81; RESP 16; TEMP 36.9; O2SAT 98; BMI 23.5
--- NOTE | 2020-09-04 14:16 | CT_ITS ---
STUDY: CT BRAIN WITHOUT CONTRAST REASON FOR EXAM: Female, 65 years old. Headache RADIATION DOSAGE (If Supplied By Facility): CTDIvol = ( 44.99 ) mGy, DLP = ( 745.49 ) mGycm TECHNIQUE: Transaxial CT imaging of the brain was performed without administration of intravenous contrast material. Individualized dose optimization techniques were used for this CT. COMPARISON: Comparison is made with prior study dated 05/26/2020. FINDINGS: Normal soft tissue structures. Normal calvarium. There is mild cerebral atrophy with widening of the extra-axial spaces and ventricular dilatation. Normal white matter tracts of the cerebral hemispheres. Normal basal ganglia and thalami. Normal brainstem. Normal cerebellum. There is no intracranial hemorrhage. There are no findings of an acute ischemic infarction. Normal visualized paranasal sinuses. CT/Brain/Head without Contrast IMPRESSION: Chronic involutional changes of the brain. Electronically Signed: Bebeto Reyes MD at 15:25 EDT , Service support ,
--- NOTE | 2020-09-04 14:16 | EKG12_ITS ---
Test Reason : Blood Pressure : / mmHG Vent. Rate : 070 BPM Atrial Rate : 070 BPM P-R Int : 180 ms QRS Dur : 090 ms QT Int : 388 ms P-R-T Axes : 051 -46 068 degrees QTc Int : 419 ms Normal sinus rhythm Left anterior fascicular block Abnormal ECG Confirmed by ANNA CHURCH, LINWOOD ([id number]), advertising editor KAYLEN ALEJO ([id number]) on 09/09/2020 12:54:35 PM Referred By: PRIYA Confirmed By:LINWOOD CASTILLO MD
--- NOTE | 2020-09-04 14:20 | EDS_ITS ---
HPI History of Present Illness Chief Complaint: Other, Pain/Inj Narrative Narrative: Patient presents with near syncopal episode, she has had these multiple times in the past however this time hand and bilateral feet she had bilateral paresthesias. She had no vertigo although she has a history of vertigo this does not feel like it. She is denying chest pain or shortness of breath. No palpitations at the time. No vision changes. She is denying any kind of confusion speech difficulty or any focal weakness. Her symptoms are not resolved she just has a mild headache which is chronic for her. [facility] Medical History (Updated 09/04/20 @ 16:[address] Fco Reyes MD) Tami-rectal abscess Vertigo Home Medications torsemide 10 tab PO DAILY 10/25/16 [History Last Taken Unknown] ondansetron 4 mg PO Q8H PRN PRN #10 tab 12/19/17 [Rx Last Taken Unknown] calcium carbonate-vitamin D3 [Calcium 600 + Vit D Tablet] 1 ea PO DAILY 04/01/18 [History Last Taken Unknown] diazepam 2 mg PO TID #10 tab 04/01/18 [Rx Last Taken Unknown] lidocaine 1 applic TOPICAL PRN PRN 04/01/18 [History Last Taken Unknown] Prednisone 40 mg PO DAILY 05/26/20 [History Last Taken Unknown] tizanidine 4 mg PO QHS 05/26/20 [History Last Taken Unknown] Allergy/AdvReac Type Severity Reaction Status Date / Time amoxicillin Allergy Hives Verified 09/04/20 14:03 clindamycin AdvReac Abd Verified 09/04/20 14:03 cramps/diarrhea codeine AdvReac Other Verified 09/04/20 14:03 Social History Smoking Status: Current every day smoker tobacco type: cigarettes ROS ROS ED ROS Narrative Past medical history: Reviewed Medications: Reviewed Social history: Noncontributory Review of systems: All systems negative except as indicated General: No fever. Lightheadedness as in HPI Eyes: No visual changes ENT: No upper airway congestion, normal voice Neck: No neck pain Cardiovascular: No chest pain Respiratory: No shortness of breath or cough Gastrointestinal: No abdominal pain, nausea vomiting or diarrhea Genitourinary: No dysuria Musculoskeletal: Denies myalgias no difficulty with ambulation Skin: No rash Neurological: No memory loss, confusion or any focal weakness. Bilateral upper and lower extremity paresthesias which have resolved Psych: No recent behavioral changes Hematologic: No easy bleeding or easy bruising EXAM Physical Exam Narrative Exam Narrative: Physical exam General: Well nourished, Well developed, No Acute Distress Head: Normocephalic, Atraumatic Eyes: Conjunctiva not pale ENT: Moist mucous membranes Neck: Supple, Nontender, No lymphadenopathy Cardiovascular: Regular rate, Regular rhythm Respiratory: No distress, CTA bilaterally Abdomen: Soft, Nontender, Nondistended Back: Nontender, Normal Inspection. Negative for: CVA tenderness Extremities: Nontender, No edema Skin: Normal color, No rash Neurological: Alert, Normal Strength, Normal Sensation Psychological: Anxious appearing Const Vital Signs: 09/04/20 14:01 09/04/20 14:22 09/04/20 15:25 Temperature 98.5 F Temperature Source Oral Pulse Rate 81 Pulse Rate [Lying] 73 Pulse Rate [Sitting] 75 Pulse Rate [Standing] 79 Respiratory Rate 16 Blood Pressure 176/75 H 162/81 H Blood Pressure [Lying] 175/69 H Blood Pressure [Sitting] 162/74 H Blood Pressure [Standing] 159/84 H Blood Pressure Mean 108 108 Blood Pressure Mean [Lying] 104 Blood Pressure Mean [Sitting] 103 Blood Pressure Mean [Standing] 109 Pulse Ox 98 Oxygen Delivery Method Room Air MDM MDM MDM Narrative Medical decision making narrative: Patient has a normal ED work-up. She appears well, she did develop some back spasms which were treated with Valium. Otherwise I will discharge in stable condition Lab Data Labs: Laboratory Results - last 24 hr 09/04/20 09/04/20 09/04/20 14:25 14:25 15:14 WBC 7.0 RBC 3.84 L Hgb 12.4 Hct 36.6 L MCV 95.3 MCH 32.3 H MCHC 33.9 RDW Std Deviation 43.4 RDW Coeff of Mari 12.4 Plt Count 182 MPV 9.6 Immature Gran % (Auto) 0.400 Neut % (Auto) 61.0 Lymph % (Auto) 28.2 Polk % (Auto) 9.0 Eos % (Auto) 1.0 Baso % (Auto) 0.4 Absolute Neuts (auto) 4.3 Absolute Lymphs (auto) 1.98 Nucleated RBC % 0 Sodium 134 L Potassium 4.5 Chloride 104 Carbon Dioxide 26.0 Anion Gap 4 L BUN 18 Creatinine 0.83 Estim Creat Clear Calc 52.73 Est GFR (MDRD) Af Amer 88 Est GFR (MDRD) Non-Af 73 BUN/Creatinine Ratio 21.7 H Glucose 121 H Calcium 8.5 Total Bilirubin 0.30 AST 22 ALT 21 Alkaline Phosphatase 57 Troponin I High Sens 3.6 Total Protein 7.1 Albumin 3.7 Globulin 3.4 Albumin/Globulin Ratio 1.1 TSH 1.31 Urine Color Yellow Urine Clarity Clear Urine pH 8.0 Ur Specific [place] 1.015 Urine Protein Negative Urine Glucose (UA) Normal Urine Ketones Negative Urine Occult Blood 10 H Urine Nitrite Negative Urine Bilirubin Negative Urine Urobilinogen Normal Ur Leukocyte Esterase Negative Urine RBC 0-5 SEEN Urine WBC 0 SEEN Ur Squamous Epith Cells 0-5 SEEN Urine Bacteria 0 SEEN Urine Mucus 0 SEEN Radiography Diagnostic Testing: Radiology Impression Brain CT 09/04/20 14:16 IMPRESSION: Chronic involutional changes of the brain. Electronically Signed: Bebeto Reyes MD at 15:25 EDT , Service support , Discharge Plan Triage Chief Complaint: Other, Pain/Inj ED Provider: Fco Reyes Dx/Rx/DC Orders Clinical Impression: Paresthesia Instructions: ED Paraesthesias Prescriptions: No Action torsemide 10 MG tablet 10 tab PO DAILY RF: 0 ondansetron 4 MG tablet 4 mg PO Q8H PRN PRN (Reason: Nausea) Qty: 10 RF: 0 calcium carbonate-vitamin D3 [Calcium 600 + D(3)] 1 EACH tablet 1 ea PO DAILY RF: 0 lidocaine 35 GM Tube 1 applic topical PRN PRN (Reason: Headache) RF: 0 diazepam 2 MG tablet 2 mg PO TID Qty: 10 RF: 0 tizanidine 4 MG capsule 4 mg PO QHS RF: 0 Prednisone 20 MG tablet 40 mg PO DAILY RF: 0 Primary Care Provider: Sherman Rocha Referrals: Sherman Rocha DO [Primary Care Provider] - 2 Days Disposition Disposition: Home, Self Care
[2020-09-04 14:22] VITALS: BP 159/84; BP 162/74; BP 175/69; PULSE 73; PULSE 75; PULSE 79
[2020-09-04] MEDS: 0.9% Normal Saline 1,000 ML 1000 ML IV (14:30)
[2020-09-04 14:32] LABS: Absolute Lymphocyte Count 1.98 X10^3/uL (0.83-4.51); Absolute Neutrophil Count 4.3 X10^3/uL (2.0-7.7); Basophil# 0.03 X10^3/uL; Basophil% 0.4 % (0-1); Eosinophil# 0.07 X10^3/uL; Hematocrit 36.6 % (37-47); Hemoglobin 12.4 g/dL (12.0-15.0); Lymphocyte # 1.98 X10^3/ul (0.83-4.51); Lymphocyte % 28.2 % (19-41); Mean Corp Hgb Conc 33.9 g/dL (32-36); Mean Corpuscular Hgb 32.3 pg (27.0-32.0); Mean Corpuscular Volume 95.3 fL (81-99); Mean Platelet Vol. 9.6 fl (6.2-12.0); Monocyte# 0.63 X10^3/uL; NRBC Flagged by Analyzer 0 % (0-5); Neutrophil # 4.27 X10^3/uL (2.7-7.7); Platelet Count 182 K/mm3 (150-450); RBC Distribution Width CV 12.4 % (11.6-14.6); RBC Distribution Width SD 43.4 fl (35.1-43.9); Red Blood Count 3.84 M/mm3 (4.2-5.4)
[2020-09-04 14:57] LABS: ALB/GLOB Ratio 1.1 RATIO (0.9-2.4); AST(SGOT) 22 U/L (15-37); Alanine Aminotransfer ALT/SGPT 21 U/L (13-56); Albumin, Serum 3.7 g/dL (3.2-5.0); Alkaline Phosphatase 57 U/L (45-117); Anion Gap 4 (5-15); BUN 18 mg/dL (7-18); BUN/Creat Ratio 21.7 RATIO (10-20); Calcium,Total 8.5 mg/dL (8.5-10.1); Chloride 104 mmol/L (98-107); Creatinine, Serum 0.83 mg/dL (0.55-1.02); EST Glomerular Filtration Rate 73 mL/min (>60); Est Glom Filt Rate - Afr Amer 88 mL/min (>60); Estimated Creatinine Clearance 52.73 ml/min; Globulin 3.4 g/dL (2.2-4.2); Glucose 121 mg/dL (74-106); Potassium 4.5 mmol/L (3.5-5.1); Protein, Total 7.1 g/dL (6.4-8.2); Sodium Level 134 mmol/L (136-145); Thyroid Stim Hormone (TSH) 1.31 uIU/mL (0.358-3.74); Troponin-I HS 3.6 pg/mL (3.0-53.7)
[2020-09-04 15:19] LABS: Bacteria 0 SEEN /hpf (None Seen); Mucous, Urine 0 SEEN /hpf (<or=2+); White Blood Cells 0 SEEN /hpf (0-5)
[2020-09-04 15:20] LABS: Color, Urine Yellow (Yellow); Glucose, Dipstick Normal (Normal); Ketone-Dipstick Negative (Negative); Leukocyte Esterase-Dipstick Negative /ul (Negative); Nitrite-Dipstick Negative (Negative); Occult Blood-Urine 10 /ul (Negative); Protein-Dipstick Negative (Negative); Specific Gravity, Urine 1.015 (1.002-1.030); Urine Bilirubin Dipstick Negative (Negative); Urine Clarity Clear (Clear); Urine Urobilinogen Normal (Normal)
[2020-09-04 15:25] VITALS: BP 162/81
[2020-09-04] MEDS: Acetaminophen 500 MG Tablet 1000 MG PO (15:28)
[2020-09-04] MEDS: diazePAM 5 MG Tablet PO (15:33)
[2020-09-04 15:35] LABS: Red Blood Cells-Urine 0-5 SEEN /hpf (0-5); Squamous Epithelial Cells - UA 0-5 SEEN /hpf (5-10)
[2020-09-04 16:23] VITALS: BP 162/81; PULSE 77; RESP 17; O2SAT 95
== END 2020-09-04 16:31 | disposition home or self-care (01) ==
PROVIDERS: Emergency Provider Emergency Medicine; PCP Student in an Organized Health Care Education/Training Program
DX: R20.2 Paresthesia of skin (principal); M62.830 Muscle spasm of back; R51.9 Headache, unspecified; F17.210 Nicotine dependence, cigarettes, uncomplicated; Z79.52 Long term (current) use of systemic steroids; Z79.899 Other long term (current) drug therapy
CPT/HCPCS: 70450; 80053; 81001; 84443; 84484; 85025; 93005; 96360; 96361; 99285; J7030; A4216

== ENCOUNTER 2020-11-04 16:49 | Emergency (ER) | payer MEDICARE, SELFPAY ==
[2020-11-04 16:50] VITALS: BP 172/71; PULSE 79; RESP 20; TEMP 36.7; O2SAT 98; BMI 21.9
--- NOTE | 2020-11-04 17:53 | EX.ED.VIS.UR ---
HPI HPI - URI History of Present Illness Chief Complaint: Shortness of Breath Informant: patient Onset/Context/Timing Onset: Days Context: Gradual Onset Timing: Continuous Current Severity: Mild Maximum Severity: Mild Associated Symptoms Associated Symptoms: Positive for Nasal Congestion, Sinus Pressure and Nonproductive cough; Negative for Nausea, Vomiting, Diarrhea, Shortness of Breath, Chest Pain and Hemoptysis Narrative Narrative: 61-year-old female no seen past medical or surgical history. 1 week ago on Wednesday started having head pressure nasal congestion. Ears feel plugged. She had a negative Covid test done in a recent urgent care visit. Has had nausea no vomiting or diarrhea. No fever or chills. Was started on Keflex by the urgent care 500 twice daily. For possible sinusitis. Prior similar symptoms: No Recent Illness/Hospitalization: No ROS ROS ED ROS Narrative Nasal congestion. Cough. Nausea. Review of Systems ROS Unobtainable: Denies due to encephalopathy Constitutional Constitutional ED: Denies chills or fever(s) Eyes Eyes: Denies change in vision ENT ENT ED: Reports rhinorrhea and sore throat; Denies ear pain Cardiovascular Cardiovascular: Denies chest pain or palpitations Respiratory/Chest Respiratory/Chest: Reports cough; Denies dyspnea Gastrointestinal Gastrointestinal: Reports nausea; Denies abdominal pain, diarrhea or vomiting Genitourinary Genitourinary ED: Denies dysuria or hematuria Musculoskeletal Musculoskeletal: Denies myalgias Integumentary Denies abscess or rash Neurologic Neurologic: Denies headache(s) Psychiatric Psychiatric: Denies depression Endocrine Endocrinology: Denies polyuria Hematologic/Lymphatic Hematologic/Lymphatic: Denies easy bruising Allergic/Immunologic Allergic/Immunologic ED: Denies urticaria [facility] Medical History Tami-rectal abscess Vertigo Home Medications ondansetron 4 mg PO Q8H PRN PRN #10 tab 12/19/17 [Rx Last Taken Unknown] calcium carbonate-vitamin D3 [Calcium 600 + Vit D Tablet] 1 ea PO DAILY 04/01/18 [History Last Taken Unknown] lidocaine 1 applic TOPICAL PRN PRN 04/01/18 [History Last Taken Unknown] Prednisone 5 mg PO DAILY 05/26/20 [History Last Taken Unknown] Allergy/AdvReac Type Severity Reaction Status Date / Time amoxicillin Allergy Hives Verified 11/04/20 17:02 clindamycin AdvReac Abd Verified 11/04/20 17:02 cramps/diarrhea codeine AdvReac Other Verified 11/04/20 17:02 Social History Smoking Status: Current every day smoker tobacco type: cigarettes EXAM Physical Exam Narrative Exam Narrative: Well-appearing older female no acute distress. Vital signs stable afebrile. HEENT exam normal. Posterior pharynx normal. Moist remembers. TMs normal bilaterally. Pupils round reactive light. No sinus tenderness. Neck no lymphadenopathy. Trachea midline. Full range of motion. No meningismus. Lungs clear to auscultation bilaterally. Heart regular rhythm no murmur. Abdomen soft nontender normal bowel sounds no peritoneal signs. Moving all 4 extremities. Neurologically awake alert no focal motor deficits. Const Vital Signs: 11/04/20 16:50 11/04/20 17:04 Temperature 98.1 F Temperature Source Temporal Pulse Rate 79 Respiratory Rate 20 H Respiratory Effort Normal Respiratory Pattern Normal Blood Pressure 172/71 H Blood Pressure Mean 104 Pulse Ox 98 Oxygen Delivery Method Room Air Positive well nourished and well developed; Negative for obese, cachectic or contractures General Appearance ED: well developed and NAD; Negative for cachectic, contractures, cyanotic, diaphoretic or pallor Nutritional Appearance: Negative for cachectic or obese HEENT Reports TM's clear and moist mucous membranes; Denies dry mucous membranes normocephalic and atraumatic; Negative for scalp tenderness Face and Sinus: Negative for sinus tenderness, maxillary instability or facial tenderness External Ear: external ears normal Tympanic Membrane ED: Yes TM's clear and TM's normal bilaterally Tympanic Membrane: TM's normal bilaterally Mouth ED: No dry mucous membranes Mouth: No dry mucous membranes Throat: Negative for posterior oropharynx normal Eyes PERRL and EOMs intact bilaterally Neck no lymphadenopathy, supple, no meningeal signs and no JVD General: Negative for anterior neck swelling or lymphadenopathy Resp normal respiratory effort and clear to auscultation bilaterally Auscultation: Negative for rales, rhonchi or wheezes Cardio S1 normal heart sound, S2 normal heart sound and no murmurs Rate: regular rate Rhythm: regular rhythm GI non-tender, non-distended and no masses Auscultation: normoactive bowel sounds; Negative for hyperactive bowel sounds or hypoactive bowel sounds Palpation: soft; Negative for tender or guarding Back/Spine no CVA tenderness Extremity normal to inspection and full ROM General Extremety ED: Negative for cyanosis or tenderness General Extremity: Negative for cyanosis Neuro oriented x3 Sensorium / Orientation: alert, oriented to person, oriented to place and oriented to time; Negative for orientation impaired, lethargic or stuporous Motor Exam: strength 5/5 throughout Psych mental status grossly normal Skin General Skin Exam: Negative for jaundice or pallor Lesions: no lesions Rashes: no rashes MDM MDM MDM Narrative Medical decision making narrative: Patient family requested her to receive IV fluids. I will get a second Covid test even though she had a negative one the other day. Repeat exam patient doing well at 6:47 PM. To be discharged home after fluids are done. Lab Data Attestation: I reviewed the patient's lab results. Lab results narrative: Covid test negative. Discharge Plan Triage Chief Complaint: Shortness of Breath ED Provider: Ramiro Garrett Dx/Rx/DC Orders Clinical Impression: Viral syndrome Instructions: ED Viral Syndrome (Adult) Prescriptions: No Action ondansetron 4 MG tablet 4 mg PO Q8H PRN PRN (Reason: Nausea) Qty: 10 RF: 0 Calcium 600 + D(3) 1 EACH tablet 1 ea PO DAILY RF: 0 lidocaine 35 GM ointment 1 applic topical PRN PRN (Reason: Headache) RF: 0 Prednisone 20 MG tablet 5 mg PO DAILY RF: 0 Primary Care Provider: Sherman Rocha Referrals: Sherman Rocha DO [Primary Care Provider] - 1 Week if not improving Activity Restrictions/Additional Instructions: Plenty of fluids and rest. Warm salt water gargling for any sore throat. Mucinex [id number] for drainage. Follow-up with your primary care provider if not improving. Disposition Disposition: Home, Self Care
[2020-11-04] MEDS: 0.9% Normal Saline 1,000 ML 1000 ML IV (18:02)
[2020-11-04 19:17] VITALS: PULSE 80; RESP 16
[2020-11-04 19:22] VITALS: RESP 18
== END 2020-11-04 19:22 | disposition home or self-care (01) ==
PROVIDERS: Emergency Provider Emergency Medicine; PCP Student in an Organized Health Care Education/Training Program
DX: B34.9 Viral infection, unspecified (principal); R09.81 Nasal congestion; R11.0 Nausea; J34.89 Other specified disorders of nose and nasal sinuses; J02.9 Acute pharyngitis, unspecified; R05 Cough; F17.210 Nicotine dependence, cigarettes, uncomplicated
CPT/HCPCS: 87426; 96360; 99285; A4216

== ENCOUNTER 2020-12-12 18:14 | Observation (INO) | payer MEDICARE, SELFPAY ==
[2020-12-12 18:18] VITALS: BP 186/74; PULSE 76; RESP 16; TEMP 36.6; O2SAT 96; BMI 24.2
--- NOTE | 2020-12-12 18:32 | CT_ITS ---
STUDY: CTA HEAD AND NECK WITH CONTRAST REASON FOR EXAM: Female, 65 years old. Neck pain, syncope RADIATION DOSAGE (If Supplied By Facility): CTDIvol = ( 25.77 ) mGy, DLP = ( 1408.76 ) mGycm TECHNIQUE: CT angiography was performed with a multi-detector CT scanner. Data acquisition was obtained from the skull base through the vertex following intravenous administration of IV 100mL Isovue-370. MIP images were reconstructed from the axial data set. Post-processing of the angiographic images was performed, with multiplanar reformation and 3D reconstruction. Individualized dose optimization techniques were used for this CT. COMPARISON: No relevant priors. FINDINGS: Normal bilateral petrous carotid arteries. Normal right cavernous carotid artery with a normal supraclinoid bifurcation. Normal left cavernous carotid artery with a normal supraclinoid bifurcation. Normal right A1 segments of the anterior cerebral artery. Normal left A1 segments of the anterior cerebral artery. Normal intact anterior communicating artery (ACOM). Normal bilateral A2 segments of the anterior cerebral arteries. Normal right M1 and M2 segments of the middle cerebral arteries, with a normal M1 bifurcation. Normal left M1 and M2 segments of the middle cerebral arteries, with a normal M1 bifurcation. Normal right posterior communicating artery (PCOM). Normal left posterior communicating artery (PCOM). Normal bilateral vertebral arteries. Normal basilar artery with a normal basilar bifurcation. Nonvisualization of the left superior cerebellar (SCA) artery. Normal right superior cerebellar artery. Normal bilateral P1, P2 and visualized P3 segments of the posterior cerebral arteries. There is no demonstrated aneurysm of the [place]. There is no demonstrated abnormality of the visualized brain. AORTIC ARCH: Calcified visualized aortic arch. Calcifications at the origins of the brachiocephalic, left common carotid, and left subclavian arteries. RIGHT CAROTID ARTERIES: Normal right common carotid artery (CCA). Normal right common carotid bulb. Normal origin of the right internal carotid (ICA) artery without a hemodynamically significant stenosis. Normal visualized cervical portion of the right internal carotid artery. Normal origin of the right external carotid artery (ECA). LEFT CAROTID ARTERIES: Normal left common carotid artery (CCA). Normal left common carotid bulb. Normal origin of the left internal carotid (ICA) artery without a hemodynamically significant stenosis. Normal visualized cervical portion of the left internal carotid artery. Normal origin of the left external carotid artery (ECA). VERTEBRAL ARTERIES: Normal bilateral vertebral arteries. CT/CTA Head AND Neck W/ Contrast IMPRESSION: Nonvisualization of the left superior cerebellar artery. Electronically Signed: Jan Cherry DO at 20:38 EDT Tel [phone], Service support ,
--- NOTE | 2020-12-12 18:32 | EKG12_ITS ---
Test Reason : SYNCOPE Blood Pressure : / mmHG Vent. Rate : 072 BPM Atrial Rate : 072 BPM P-R Int : 180 ms QRS Dur : 090 ms QT Int : 380 ms P-R-T Axes : 074 -41 064 degrees QTc Int : 416 ms Normal sinus rhythm Left axis deviation Abnormal ECG Confirmed by ANNA CHURCH, LINWOOD ([id number]), magazine editor KAYLEN ALEJO ([id number]) on 12/17/2020 7:46:58 AM Referred By: MAYURI Confirmed By:LINWOOD CASTILLO MD
--- NOTE | 2020-12-12 18:34 | EX.ED.DYSGE1 ---
HPI History of Present Illness Chief Complaint: Syncope Informant: patient and EMS Onset/Context/Timing Onset: Today Narrative Narrative: Patient presents with syncopal episodes today. She reports passing out approximately 3 times. She states when her eyes closed she feels dizzy as if everything is spinning and then she passes out. She states that she has problems with her neck and has undergone MRIs of her neck and upper back. She is scheduled to have a facet injection with Dr. Rd nava. Patient states that on the most recent MRI they found a nodule on her thyroid. That is currently being worked up. She states at times she feels like her throat is swelling and putting pressure on her vessels. [facility] Medical History Tami-rectal abscess Vertigo Home Medications ondansetron 4 mg PO Q8H PRN PRN #10 tab 12/19/17 [Rx Last Taken Unknown] calcium carbonate-vitamin D3 [Calcium 600 + Vit D Tablet] 1 ea PO DAILY 04/01/18 [History Last Taken Unknown] lidocaine 1 applic TOPICAL PRN PRN 04/01/18 [History Last Taken Unknown] Allergy/AdvReac Type Severity Reaction Status Date / Time amoxicillin Allergy Hives Verified 12/12/20 18:23 clindamycin AdvReac Abd Verified 12/12/20 18:23 cramps/diarrhea codeine AdvReac Other Verified 12/12/20 18:23 Surgical History no surgical history Social History Smoking Status: Light Smoker (<10/day) [facility] ED Constitutional Constitutional ED: Denies chills or fever(s) Eyes Eyes: Denies change in vision ENT ENT ED: Denies sore throat Cardiovascular Cardiovascular: Reports chest pain Respiratory/Chest Respiratory/Chest: Denies cough or dyspnea Gastrointestinal Gastrointestinal: Denies abdominal pain, diarrhea, nausea or vomiting Genitourinary Genitourinary ED: Denies dysuria Musculoskeletal Musculoskeletal: Reports back pain and neck pain Integumentary Denies rash Neurologic Neurologic: Reports weakness; Denies headache(s) Allergic/Immunologic Allergic/Immunologic ED: Denies urticaria EXAM Physical Exam Const Vital Signs: 12/12/20 18:18 Temperature 97.9 F Temperature Source Temporal Pulse Rate 76 Respiratory Rate 16 Blood Pressure 186/74 H Blood Pressure Mean 111 Pulse Ox 96 Oxygen Delivery Method Room Air Positive well nourished and well developed General Appearance ED: well developed HEENT Reports normocephalic and head/scalp atraumatic Eyes PERRL and EOMs intact bilaterally Neck supple Chest Wall inspection of chest normal and palpation of chest normal Resp normal respiratory effort and clear to auscultation bilaterally Cardio regular rate and regular rhythm GI normal to inspection, nondistended, normoactive bowel sounds Palpation: soft Extremity normal to inspection Neuro oriented x3 and no sensory deficits noted Sensorium / Orientation: alert Motor Exam: strength 5/5 throughout Psych Mood & Affect: anxious and tearful Skin no rashes or lesions noted MDM MDM MDM Narrative Medical decision making narrative: Patient was placed on playground monitor. EKG, chest x-ray, lab work obtained. CTA head and neck ordered. Lab Data Attestation: I reviewed the patient's lab results. Labs: Laboratory Results - last 24 hr 12/12/20 12/12/20 18:30 18:30 WBC 9.0 RBC 3.71 L Hgb 12.2 Hct 34.8 L MCV 93.8 MCH 32.9 H MCHC 35.1 RDW Std Deviation 44.5 H RDW Coeff of Mari 13.1 Plt Count 241 MPV 9.2 Immature Gran % (Auto) 0.400 Neut % (Auto) 64.1 Lymph % (Auto) 25.3 [place] % (Auto) 9.0 Eos % (Auto) 1.0 Baso % (Auto) 0.2 Absolute Neuts (auto) 5.8 Absolute Lymphs (auto) 2.28 Nucleated RBC % 0 Sodium 131 L Potassium 4.1 Chloride 98 Carbon Dioxide 24.0 Anion Gap 9 BUN 16 Creatinine 0.68 Estim Creat Clear Calc 43.77 Est GFR (MDRD) Af Amer 112 Est GFR (MDRD) Non-Af 92 BUN/Creatinine Ratio 23.7 H Glucose 98 Calcium 8.9 Total Bilirubin 0.30 Direct Bilirubin 0.10 AST 15 ALT 20 Alkaline Phosphatase 44 L Troponin I High Sens 8 Total Protein 6.8 Albumin 3.4 Globulin 3.4 TSH 0.75 Radiography Chest X-Ray - ED: 1 View, Read by ED Physician and Chronic Changes Diagnostic Testing: Clinical Impression(s) from Imaging Studies Head/Neck CTA 12/12/20 18:32 IMPRESSION: Nonvisualization of the left superior cerebellar artery. Electronically Signed: Jan Cherry DO at 20:38 EDT Tel [phone], Service support , Chest X-Ray 12/12/20 19:30 IMPRESSION: Normal x-ray examination of the chest. Electronically Signed: Jan Cherry DO at 20:06 EDT Tel [phone], Service support , EKG Initial EKG: Attestation: I personally reviewed and interpreted this EKG as follows: Interpretation: Sinus Rhythm (Sinus at 72 with no acute ischemia.) Treatment and Re-Evaluation Comments:: Repeat evaluation patient resting comfortably. Test results discussed with her at length. Blood work including troponin and TSH normal. EKG unremarkable. CTA head and neck reveals no acute findings. Blood work significant for a mildly low sodium at 131, however appears to be near her baseline. Patient reports episodes of neck and lower face swelling and she now states that sweats started her episodes today. She reports 3 episodes of syncope. I do think it would be prudent to observe her overnight on playground monitor to ensure no cardiac cause for her episodes. I will speak with the hospitalist. Discharge Plan Triage Chief Complaint: Syncope ED Provider: Isa Hinkle Dx/Rx/DC Orders Clinical Impression: Syncope Prescriptions: No Action ondansetron 4 MG tablet 4 mg PO Q8H PRN PRN (Reason: Nausea) Qty: 10 RF: 0 Calcium 600 + D(3) 1 EACH tablet 1 ea PO DAILY RF: 0 lidocaine 35 GM ointment 1 applic topical PRN PRN (Reason: Headache) RF: 0 Primary Care Provider: Sherman Rocha Referrals: Sherman Rocha DO [Primary Care Provider] - Disposition Disposition: Acute Care Hospital [facility]
[2020-12-12 18:57] LABS: Absolute Lymphocyte Count 2.28 X10^3/uL (0.83-4.51); Absolute Neutrophil Count 5.8 X10^3/uL (2.0-7.7); Basophil# 0.02 X10^3/uL; Basophil% 0.2 % (0-1); Eosinophil# 0.09 X10^3/uL; Hematocrit 34.8 % (37-47); Hemoglobin 12.2 g/dL (12.0-15.0); Lymphocyte # 2.28 X10^3/ul (0.83-4.51); Lymphocyte % 25.3 % (19-41); Mean Corp Hgb Conc 35.1 g/dL (32-36); Mean Corpuscular Hgb 32.9 pg (27.0-32.0); Mean Corpuscular Volume 93.8 fL (81-99); Mean Platelet Vol. 9.2 fl (6.2-12.0); Monocyte# 0.81 X10^3/uL; NRBC Flagged by Analyzer 0 % (0-5); Neutrophil # 5.76 X10^3/uL (2.7-7.7); Neutrophil % 64.1 % (47-70); Platelet Count 241 K/mm3 (150-450); RBC Distribution Width CV 13.1 % (11.6-14.6); RBC Distribution Width SD 44.5 fl (35.1-43.9); Red Blood Count 3.71 M/mm3 (4.2-5.4)
[2020-12-12] MEDS: 0.9% Normal Saline 1,000 ML 150 ML IV (19:10)
[2020-12-12 19:17] LABS: AST(SGOT) 15 U/L (15-37); Alanine Aminotransfer ALT/SGPT 20 U/L (13-56); Albumin, Serum 3.4 g/dL (3.2-5.0); Alkaline Phosphatase 44 U/L (45-117); Anion Gap 9 (5-15); BUN 16 mg/dL (7-18); BUN/Creat Ratio 23.7 RATIO (10-20); Calcium,Total 8.9 mg/dL (8.5-10.1); Chloride 98 mmol/L (98-107); Creatinine, Serum 0.68 mg/dL (0.55-1.02); EST Glomerular Filtration Rate 92 mL/min (>60); Est Glom Filt Rate - Afr Amer 112 mL/min (>60); Estimated Creatinine Clearance 43.77 ml/min; Globulin 3.4 g/dL (2.2-4.2); Glucose 98 mg/dL (74-106); Potassium 4.1 mmol/L (3.5-5.1); Protein, Total 6.8 g/dL (6.4-8.2); Sodium Level 131 mmol/L (136-145); Thyroid Stim Hormone (TSH) 0.75 uIU/mL (0.358-3.74); Troponin-I HS 8 pg/mL (3.0-54.0)
--- NOTE | 2020-12-12 19:30 | RAD_ITS ---
STUDY: X-RAY CHEST REASON FOR EXAM: Female, 65 years old. Chest pain TECHNIQUE: Frontal view COMPARISON: 05/26/2020 FINDINGS: The lungs are clear and expanded. There is no demonstrated pleural abnormality. Normal size heart. Normal mediastinum and suze. Normal visualized pulmonary arteries. Normal visualized aortic arch and descending thoracic aorta. Normal visualized thoracic spine. Normal visualized ribs, clavicles, and shoulders. There is no demonstrated abnormality of the visualized soft tissue structures of the upper abdomen. RAD/Chest 1 View (Portable) IMPRESSION: Normal x-ray examination of the chest. Electronically Signed: Jan Cherry DO at 20:06 EDT Tel [phone], Service support ,
--- NOTE | 2020-12-12 19:42 | ED.RN ---
PUREWICK PLACED FOR PT COMFORT.
--- NOTE | 2020-12-12 21:22 | HP.PCM.HOS_ITS ---
HPI - General General Date of Admission: 12/12/20 HPI Narrative PAMELA SAUER, is a 65 F with a significant history of a Vertigo who presents to the emergency department with vertiginous symptoms. She reports that the inside of her head appears to be spinning; and she has passed out multiple times because of this spinning sensation. Patient reports that she has days vertiginous symptoms order time but on the day presentation of presentation worse. She also mild nausea that has not required Zofran. Patient reports head fullness with some whooshing sensation in her ears. In the past she tried meclizine but had no relief. She reported in the past diazepam made her a groggy without any relief. While at the emergency department she also complained of left sided chest pain. She describes the chest pain as a feeling of her heart hurting. In regard to her vertiginous symptoms patient has seen ENT in the past. She reported that her ENT specialist told her that it might be related to head and neck. She was in rehab for vertiginous symptoms but she reports that the therapy actually made her symptoms worse and it was aborted. In the past she had a tilt table test. She reported that she had an outpatient MRI and a thyroid nodule was found . Reportedly there are plans to work-up her thyroid nodule outpatient. [facility] Medical History (Updated 12/12/20 @ 22:[address] Vincent Porter MD) Tami-rectal abscess Vertigo Home Medications ondansetron 4 mg PO Q8H PRN PRN #10 tab 12/19/17 [Rx Last Taken Unknown] calcium carbonate-vitamin D3 [Calcium 600 + Vit D Tablet] 1 ea PO DAILY 04/01/18 [History Last Taken Unknown] lidocaine 1 applic TOPICAL PRN PRN 04/01/18 [History Last Taken Unknown] Allergy/AdvReac Type Severity Reaction Status Date / Time amoxicillin Allergy Hives Verified 12/12/20 18:23 clindamycin AdvReac Abd Verified 12/12/20 18:23 cramps/diarrhea codeine AdvReac Other Verified 12/12/20 18:23 Family History (Updated 12/12/20 @ 21:[address] Vincent Porter MD) Other Alzheimer's dementia CVA (cerebral vascular accident) Heart disease Surgical History no surgical history no surgical history (No surgical history to the patient had drainage of perirectal abscess and fistula repair) Social History Smoking Status: Light Smoker (<10/day) ROS ROS Narrative Constitutional: Denies fever, chills, fatigue, anorexia and change in weight Eyes: Denies blurry vision, change in eye color, change in vision, discharge from eye(s), double vision, erythema, eye pain, loss of vision or other HEENT: Denies abnormal hearing, dysphagia, ear pain, epistaxis, headache(s), hearing loss, nasal congestion, nasal discharge, post nasal drip, sinus pressure, sore throat or other Cardiovascular: Reports chest pain. Denies dyspnea on exertion, orthopnea and paroxysmal nocturnal dyspnea Respiratory/Chest: Denies cough, excessive phlegm production, shortness of breath with exertion and wheezing Gastrointestinal: Denies abdominal pain, coffee ground emesis, constipation, diarrhea, dyspepsia, hematemesis, hematochezia, loose stools, melena, nausea, vomiting or other Genitourinary: Denies burning urination, difficulty urinating, dysuria, hematuria, nocturia, urinary frequency, urinary hesitancy, urinary incontinence, urinary urgency or other Musculoskeletal: Reports neck pain and back pain. Denies, joint swelling. Neurologic: Reports occipital headache. Reports syncope. Denies numbness. Psychiatric: Denies anxiety, depression, homicidal ideation, suicidal ideation or other Endocrinology: Denies change in body appearance, cold intolerance, excessive sweating, heat intolerance, polydipsia, polyuria or other Hematologic/Lymphatic: Denies anemia, easy bleeding, easy bruising, lymphadenopathy or other Integumentary: Denies rashes Allergic/Immunologic: Denies rhinitis, hives, eczema, asthma or other Vital Signs Vital Signs Vital Signs: 12/12/20 18:18 Temperature 97.9 F Temperature Source Temporal Pulse Rate 76 Respiratory Rate 16 Blood Pressure 186/74 H Blood Pressure Mean 111 Pulse Ox 96 Oxygen Delivery Method Room Air Weight Weight: 60 kg Body Mass Index (BMI) 24.2 Physical Exam Narrative Physical exam: General: Well-nourished, well-developed. Head: Normocephalic, atraumatic, no tenderness Eyes: PERRLA, EOMI ENT, no trauma, moist mucous membranes, no rhinorrhea. Tympanic membranes with no erythema; pearly looking. Neck: Nontender, full range of motion, no spinal tenderness, deformities, step- off CVS: Regular rate and rhythm. S1-S2 present. No murmur, gallop or rub. Respiratory : clear to auscultation bilaterally, chest wall nontender, no wheezing Abdomen: Soft, nontender, nondistended, normal bowel sounds, no masses : Deferred Back: Nontender, no CVA tenderness, no midline spinal tenderness, deformities, step-offs Extremities: Nontender full range of motion, no trauma Skin: Normal color, no trauma, abrasions Neuro: Alert, oriented, cranial nerves II through XII grossly intact. Pelon- Hallpike maneuver with extreme dizziness. Psychiatry: Normal mood. Normal affect. Not depressed. Not anxious. Results Lab / Micro Data Result Diagrams: 12/12/20 18:30 12/12/20 18:30 Labs: Laboratory Results - last 24 hr 12/12/20 18:30: WBC 9.0, RBC 3.71 L, Hgb 12.2, Hct 34.8 L, MCV 93.8, MCH 32.9 H, MCHC 35.1, RDW Std Deviation 44.5 H, RDW Coeff of Mari 13.1, Plt Count 241, MPV 9.2, Immature Gran % (Auto) 0.400, Neut % (Auto) 64.1, Lymph % (Auto) 25.3, [place] % (Auto) 9.0, Eos % (Auto) 1.0, Baso % (Auto) 0.2, Absolute Neuts (auto) 5.8, Absolute Lymphs (auto) 2.28, Nucleated RBC % 0 12/12/20 18:30: Sodium 131 L, Potassium 4.1, Chloride 98, Carbon Dioxide 24.0, Anion Gap 9, BUN 16, Creatinine 0.68, Estim Creat Clear Calc 43.77, Est GFR (MDRD) Af Amer 112, Est GFR (MDRD) Non-Af 92, BUN/Creatinine Ratio 23.7 H, Gl ucose 98, Calcium 8.9, Total Bilirubin 0.30, Direct Bilirubin 0.10, AST 15, ALT 20, Alkaline Phosphatase 44 L, Troponin I High Sens 8, Total Protein 6.8, Albumin 3.4, Globulin 3.4, TSH 0.75 Micro: Microbiology 12/12/20 19:08 Nasal Secretion SARS-CoV-2 Antigen (Rapid) - Final Radiology Impression Head/Neck CTA 12/12/20 18:32 IMPRESSION: Nonvisualization of the left superior cerebellar artery. Electronically Signed: Jan Cherry DO at 20:38 EDT Tel [phone], Service support , Chest X-Ray 12/12/20 19:30 IMPRESSION: Normal x-ray examination of the chest. Electronically Signed: Jan Cherry DO at 20:06 EDT Tel [phone], Service support , Assessment & Plan Assessment/Plan (1) Syncope: QUALIFIERS: Syncope type: unspecified Qualified Code(s): R55 - Syncope and collapse (2) Vertigo: PLAN: Vertigo with syncope Head and neck CTA with no visualization of the legs superior cerebellar artery. EKG with a peak T waves. Normal sinus rhythm. Potassium is normal. Admit to progressive care unit on telemetry Patient has seen ENT in the past and has had multiple work-ups. Vestibular rehab in the past actually made patient worse. SOC neurology consult. Chest pain Chest x-ray image was independently interpreted and I agree radiologist interpretation above. Initial high sensitivity is negative. Check echocardiogram. Hyponatremia Mild with sodium of 131; chronic upon review of labs. Received IV normal saline at the emergency department. Continues maintenance infusion 75 mL's per hour. Trend BMP. Neck pain and back pain: Lidoderm patch ordered at the emergency department and continued. Tylenol as needed. Tobacco abuse: Counseled. Declined nicotine patch. DVT prophylaxis: Low risk in observation. SCD ordered. Charges/Coding Visit Charges OBSV E&M: 15540 Initial observation care L3
[2020-12-12] MEDS: Lidocaine 5% Patch 1 PATCH TOPICAL (21:53)
[2020-12-12] MEDS: Ibuprofen 200 MG Tablet 400 MG PO (21:54)
[2020-12-12 21:56] VITALS: BP 168/75; PULSE 76; RESP 24; TEMP 36.6; O2SAT 95
[2020-12-12 22:35] VITALS: BP 182/77; BP 185/81; PULSE 74; PULSE 81
--- NOTE | 2020-12-12 22:35 | TELEMED_ITS ---
SOC Telemed has confirmed receipt of a request for visit. This document confirms receipt of the order initiating the consult. To find the results of the consultation, please view the patient's reports for the scanned Telemed Consult.
--- NOTE | 2020-12-12 22:35 | ECHOD_ITS ---
Reason For Study: Syncope/Near Syncope Procedure This was a 2D Doppler, Color Flow transthoracic echocardiogram. Echo done with patient sitting up due to vertigo. Exam performed portable in patient room. Left Ventricle Normal LV size. The estimated ejection fraction is EF 55-60 %. Right Ventricle Normal right ventricle. Normal systolic function. Atria Normal left atrium. Normal right atrium. Mitral Valve The mitral valve is structurally normal. No prolapse or stenosis seen. Trivial mitral valve insufficiency. Tricuspid Valve Normal tricuspid valve. Trivial eccentric tricuspid valve insufficiency. Aortic Valve Normal aortic valve. Mild (1+) eccentric aortic valve insufficiency. Pulmonic Valve The pulmonic valve is not well visualized. Pericardium/Pleural No pericardial effusion. MMode/2D Measurements & Calculations LVIDd: 4.1 cm IVSd: 1.0 cm LA dimension: 2.6 cm LVIDs: 2.6 cm LVPWd: 0.83 cm FS: 38.2 % LAV(MOD-sp4): 27.7 ml LA A4 area: 13.3 cm2 RA A4 area: 10.3 cm2 Time Measurements MV dec time: 0.24 sec Doppler Measurements & Calculations MV E max markus: 83.0 cm/sec Lat Peak E' Markus: 5.6 cm/sec Med Peak E' Markus: 5.9 cm/sec MV A max markus: 88.3 cm/sec E/E' lat: 15.0 E/E' med: 14.1 MV E/A: 0.94 MV V2 max: 108.1 cm/sec MV P1/2t max markus: 110.0 cm/sec Ao V2 max: 113.0 cm/sec MV max P.7 mmHg MV P1/2t: 62.0 msec Ao max P.1 mmHg MV V2 mean: 59.6 cm/sec MV mean P.7 mmHg MV dec slope: 519.4 cm/sec2 MV V2 VTI: 29.6 cm MVA(P1/2t): 3.5 cm2 LV V1 max: 98.7 cm/sec PA V2 max: 118.5 cm/sec TR max markus: 244.4 cm/sec LV V1 max P.9 mmHg TR max P.9 mmHg ECHO/Echo Complete Interpretation Summary The estimated ejection fraction is EF 55-60 %. Normal LV systolic function Ordering Physician: Vincent Porter Referring Physician: Sherman Rocha Performed By: Rubens Tolentino RCS
[2020-12-12 22:39] VITALS: PULSE 84; BMI 22.7
--- NOTE | 2020-12-12 22:40 | PCS.PANDOC ---
PANDEMIC DOCUMENTATION INITIATED: Date: 10/14/2020 Time: 190
[2020-12-12 22:46] VITALS: BP 181/71; PULSE 68; RESP 18; TEMP 36.4; O2SAT 97
[2020-12-12] MEDS: 0.9% Normal Saline 1,000 ML 75 ML IV (23:08)
[2020-12-12 23:39] LABS: Troponin-I HS 10 pg/mL (3.0-54.0)
[2020-12-13 01:02] LABS: Troponin-I HS 10 pg/mL (3.0-54.0)
--- NOTE | 2020-12-13 01:04 | NURSING ---
This RN attempted to perform orthostatic VS but the patient refused and stated she was unable to stand up right now due to headache and feeling dizzy.
[2020-12-13 03:00] VITALS: PULSE 72
[2020-12-13 04:46] VITALS: BP 152/73; PULSE 74; RESP 18; TEMP 36.6; O2SAT 95
[2020-12-13 07:00] VITALS: PULSE 75
[2020-12-13 07:12] LABS: Absolute Lymphocyte Count 2.04 X10^3/uL (0.83-4.51); Absolute Neutrophil Count 4.6 X10^3/uL (2.0-7.7); Basophil# 0.03 X10^3/uL; Basophil% 0.4 % (0-1); Eosinophil# 0.13 X10^3/uL; Eosinophils% 1.7 % (0-5); Hematocrit 34.1 % (37-47); Hemoglobin 11.8 g/dL (12.0-15.0); Lymphocyte # 2.04 X10^3/ul (0.83-4.51); Lymphocyte % 26.9 % (19-41); Mean Corp Hgb Conc 34.6 g/dL (32-36); Mean Corpuscular Hgb 33.3 pg (27.0-32.0); Mean Corpuscular Volume 96.3 fL (81-99); Mean Platelet Vol. 9.4 fl (6.2-12.0); Monocyte# 0.75 X10^3/uL; Monocyte% 9.9 % (0-10); NRBC Flagged by Analyzer 0 % (0-5); Neutrophil # 4.59 X10^3/uL (2.7-7.7); Neutrophil % 60.7 % (47-70); Platelet Count 227 K/mm3 (150-450); RBC Distribution Width CV 13.3 % (11.6-14.6); RBC Distribution Width SD 47.8 fl (35.1-43.9); Red Blood Count 3.54 M/mm3 (4.2-5.4); White Blood Count 7.6 K/mm3 (4.4-11.0)
[2020-12-13 07:42] LABS: Anion Gap 7 (5-15); BUN 13 mg/dL (7-18); BUN/Creat Ratio 22.9 RATIO (10-20); Calcium,Total 8.6 mg/dL (8.5-10.1); Chloride 106 mmol/L (98-107); Creatinine, Serum 0.57 mg/dL (0.55-1.02); EST Glomerular Filtration Rate 113 mL/min (>60); Est Glom Filt Rate - Afr Amer 137 mL/min (>60); Estimated Creatinine Clearance 43.77 ml/min; Glucose 79 mg/dL (74-106); Potassium 4.4 mmol/L (3.5-5.1); Sodium Level 138 mmol/L (136-145)
[2020-12-13] MEDS: Ibuprofen 200 MG Tablet PO (08:02)
[2020-12-13] MEDS: Lidocaine 5% Patch 1 PATCH TOPICAL (08:23)
--- NOTE | 2020-12-13 10:18 | RAD_ITS ---
STUDY: X-RAY - CERVICAL SPINE REASON FOR EXAM: Female, 65 years old. neck pain, vertigo TECHNIQUE: 7 view(s) of the cervical spine were obtained. COMPARISON: None FINDINGS: Normal cervical lordosis. There is multi-level endplate spondylosis. There is multi-level degenerative disc disease with multilevel disc space narrowing. There is no demonstrated spondylolisthesis on flexion and extension. The soft tissue structures are unremarkable. RAD/Cerv Spine Obl/Flex/Ext Comp IMPRESSION: Degenerative changes of the spine. Electronically Signed: Jena Matthews MD at 11:08 EDT Tel , Service support ,
[2020-12-13 10:45] VITALS: BP 153/75; PULSE 73; RESP 18; TEMP 36.4; O2SAT 96
[2020-12-13 10:51] LABS: CRP < 2.90 mg/L (0.0-3.0)
[2020-12-13 10:58] LABS: Erythrocyte Sedimentation Rate 10 mm/hr (0-30)
[2020-12-13 11:00] VITALS: PULSE 90
[2020-12-13] MEDS: Pregabalin 50 MG Capsule PO (12:01)
[2020-12-13 12:57] VITALS: BP 153/78; PULSE 73; RESP 18; TEMP 36.4; O2SAT 96
[2020-12-13] MEDS: 0.9% Normal Saline 1,000 ML 75 ML IV (14:18)
--- NOTE | 2020-12-13 14:49 | CASEMGMT ---
Per therapy notes, pt does not want or need any further therapy at discharge. S[place]en RN CM
--- NOTE | 2020-12-13 14:50 | PCM.DC ---
Discharge Instructions Diet Discharge Diet: No restrictions Activity Discharge Activity: Return to Normal Activity Weight Bearing Status: Weight bearing as tolerated Follow Up Care Test Results: Test results from this visit will be discussed in further detail at your follow-up appointment, if applicable. Discharge Plan Admission Admit Date/Time: 12/12/20 21:16 Primary Reason for Your Visit: Vertigo Attending Provider: Jacinta Leon Primary Care Provider: Sherman Rocha Instructions Additional Instructions / Restrictions: Continue to follow-up with Dr. Sultana in the outpatient for the facet injection. Discharge Orders/Prescriptions Prescriptions: Continued ondansetron 4 MG tablet 4 mg PO Q8H PRN PRN (Reason: Nausea) Qty: 10 RF: 0 Calcium 600 + D(3) 1 EACH tablet 1 ea PO BID RF: 0 lidocaine 35 GM ointment 1 applic topical PRN PRN (Reason: Headache) RF: 0 omeprazole 40 mg capsule,delayed release(DR/EC) 40 mg PO DAILY RF: 0 Referrals / Follow Up: Sherman Rocha DO [Primary Care Provider] - Within 2 Weeks Disposition Disposition (needs filled in before D/C Order can be placed): Home, Self Care
--- NOTE | 2020-12-13 14:54 | DS.PCM_ITS ---
Providers Date of Admission: 12/12/20 Date of Discharge: 12/13/20 Primary Care Physician: Dr. Sherman Rocha DO Reason For Visit: SYNCOPE WITH COLLAPSE Diagnosis Discharge Diagnosis (1) Syncope: Status: Acute Code(s): R55 - Syncope and collapse Qualifiers: Syncope type: unspecified Qualified Code(s): R55 - Syncope and collapse (2) Vertigo: Status: Acute Code(s): R42 - Dizziness and giddiness Medications at Discharge Home Medications ondansetron 4 mg PO Q8H PRN PRN #10 tab 12/19/17 Calcium 600 + D(3) 1 ea PO BID 04/01/18 lidocaine 1 applic TOPICAL PRN PRN 04/01/18 omeprazole 40 mg PO DAILY 12/13/20 Hospital Course Operations None Procedures 2-D Echocardiogram Summary of Care Provided Minutes Spent on Discharge: 45 Hospital Course: 64 y/o with PMHx of chronic vertigo who presented with sensation of spinning, passing out multiple times. Patient had followed up with ENT in orthopedic spine surgery with apparently no results. This is chronic and been going on for months. She has chronic posterior head and neck pain for which she has had cervical epidural with no effect. She is due for upper cervical facet injection with Dr. Sultana in 5 days time. Patient was admitted to the PCU. Telemetry neurology was consulted. They recommended flexion-extension x-rays of the cranial cervical region. This showed degenerative changes. MRI from [facility] showed no acute abnormality; borderline C3-C4 cervical stenosis. ESR and CRP were unremarkable. PT and OT were consulted for patient. Patient apparently did well. Declined any further PT and OT. 2D echo showed normal EF, no acute abnormality Patient was recommended to continue on her NSAIDs, follow-up with Dr. Sultana for cervical facet injection Physical Exam Narrative Physical exam: General: Alert, Oriented x3, Cooperative, No apparent distress, Well developed, appears anxious HEENT: Atraumatic, tenderness over the posterior aspect of the head and neck Oral: Moist Mucosa Neck: Supple Lungs: Clear to auscultation Cardiovascular: HS I+II, regular, no murmurs Abdomen: Bowel Sounds Present, Soft, Non Tender Extremities: No edema Weight / BMI Weight Weight: 56.4 kg Body Mass Index (BMI) 22.7 ABG / Lab / Microbiology Data Result Diagrams: 12/13/20 05:50 12/13/20 05:50 Laboratory: Laboratory Results - last 24 hr 12/12/20 18:30: WBC 9.0, RBC 3.71 L, Hgb 12.2, Hct 34.8 L, MCV 93.8, MCH 32.9 H, MCHC 35.1, RDW Std Deviation 44.5 H, RDW Coeff of Mari 13.1, Plt Count 241, MPV 9.2, Immature Gran % (Auto) 0.400, Neut % (Auto) 64.1, Lymph % (Auto) 25.3, [place] % (Auto) 9.0, Eos % (Auto) 1.0, Baso % (Auto) 0.2, Absolute Neuts (auto) 5.8, Absolute Lymphs (auto) 2.28, Nucleated RBC % 0 12/12/20 18:30: Sodium 131 L, Potassium 4.1, Chloride 98, Carbon Dioxide 24.0, Anion Gap 9, BUN 16, Creatinine 0.68, Estim Creat Clear Calc 43.77, Est GFR (MDRD) Af Amer 112, Est GFR (MDRD) Non-Af 92, BUN/Creatinine Ratio 23.7 H, Glucose 98, Calcium 8.9, Total Bilirubin 0.30, Direct Bilirubin 0.10, AST 15, ALT 20, Alkaline Phosphatase 44 L, Troponin I High Sens 8, Total Protein 6.8, Albumin 3.4, Globulin 3.4, TSH 0.75 12/12/20 23:03: Troponin I High Sens 10 12/13/20 00:34: Troponin I High Sens 10 12/13/20 05:50: Sodium 138, Potassium 4.4, Chloride 106, Carbon Dioxide 25.0, Anion Gap 7, BUN 13, Creatinine 0.57, Estim Creat Clear Calc 43.77, Est GFR (MDRD) Af Amer 137, Est GFR (MDRD) Non-Af 113, BUN/Creatinine Ratio 22.9 H, Glucose 79, Calcium 8.6 12/13/20 05:50: WBC 7.6, RBC 3.54 L, Hgb 11.8 L, Hct 34.1 L, MCV 96.3, MCH 33.3 H, MCHC 34.6, RDW Std Deviation 47.8 H, RDW Coeff of Mari 13.3, Plt Count 227, MPV 9.4, Immature Gran % (Auto) 0.400, Neut % (Auto) 60.7, Lymph % (Auto) 26.9, [place] % (Auto) 9.9, Eos % (Auto) 1.7, Baso % (Auto) 0.4, Absolute Neuts (auto) 4.6, Absolute Lymphs (auto) 2.04, Nucleated RBC % 0 12/13/20 05:50: ESR 10 12/13/20 05:50: C-React Prot Ext Range < 2.90 Microbiology: Microbiology 12/12/20 19:08 Nasal Secretion SARS-CoV-2 Antigen (Rapid) - Final Radiography Diagnostic Testing: Radiology Impression Head/Neck CTA 12/12/20 18:32 IMPRESSION: Nonvisualization of the left superior cerebellar artery. Electronically Signed: Jan Cherry DO at 20:38 EDT Tel [phone], Service support , Chest X-Ray 12/12/20 19:30 IMPRESSION: Normal x-ray examination of the chest. Electronically Signed: Jan Cherry DO at 20:06 EDT Tel [phone], Service support , Spine Flexion/Extension X-Ray 12/13/20 10:18 IMPRESSION: Degenerative changes of the spine. Electronically Signed: Jena Matthews MD at 11:08 EDT Tel , Service support , D/C Instructions Discharge Diet: No restrictions Weight Bearing Status: Weight bearing as tolerated Meaningful Use Info Meaningful Use Diagnoses (Choose all that apply): None applicable Discharge Plan Admission Admit Date/Time: 12/12/20 21:16 Primary Reason for Your Visit: Vertigo Attending Provider: Jacinta Leon Primary Care Provider: Sherman Rocha Instructions Additional Instructions / Restrictions: Continue to follow-up with Dr. Sultana in the outpatient for the facet injection. Discharge Orders/Prescriptions Prescriptions: Continued ondansetron 4 MG tablet 4 mg PO Q8H PRN PRN (Reason: Nausea) Qty: 10 RF: 0 Calcium 600 + D(3) 1 EACH tablet 1 ea PO BID RF: 0 lidocaine 35 GM ointment 1 applic topical PRN PRN (Reason: Headache) RF: 0 omeprazole 40 mg capsule,delayed release(DR/EC) 40 mg PO DAILY RF: 0 Referrals / Follow Up: Sherman Rocha DO [Primary Care Provider] - Within 2 Weeks Disposition Disposition (needs filled in before D/C Order can be placed): Home, Self Care Charges/Coding Visit Charges OBSV E&M: 93648 Observation care discharge
== END 2020-12-13 17:24 | disposition home or self-care (01) ==
LOC: ED 21:16 → PCU 21:24
PROVIDERS: Admitting Provider Hospitalist; Emergency Provider Emergency Medicine; PCP Student in an Organized Health Care Education/Training Program; Visit Provider Internal Medicine
DX: R55 Syncope and collapse (principal); R42 Dizziness and giddiness; F17.200 Nicotine dependence, unspecified, uncomplicated; E87.1 Hypo-osmolality and hyponatremia; R07.89 Other chest pain; M47.812 Spondylosis without myelopathy or radiculopathy, cervical region; Z79.899 Other long term (current) drug therapy
CPT/HCPCS: 36415; 70496; 70498; 71045; 72052; 80048; 80076; 84443; 84484; 85025; 85652; 86140; 87426; 93005; 93306; 96360; 96361; 97161; 97166; 99218; 99285; 99406; J7030; Q9967; A4216; G0378

== ENCOUNTER 2021-03-17 12:52 | Emergency (ER) | payer MEDICARE, SELFPAY ==
[2021-03-17 12:53] VITALS: PULSE 72; RESP 19; TEMP 36.5; O2SAT 98; BMI 26.1
[2021-03-17 12:59] VITALS: BP 160/69
--- NOTE | 2021-03-17 13:12 | EKG12_ITS ---
Test Reason : CP Blood Pressure : / mmHG Vent. Rate : 069 BPM Atrial Rate : 069 BPM P-R Int : 174 ms QRS Dur : 090 ms QT Int : 378 ms P-R-T Axes : 061 -35 070 degrees QTc Int : 405 ms Normal sinus rhythm Left axis deviation Abnormal ECG Confirmed by ZAK CHURCH, TAYLA ([id number]), supervising editor news reel KAYLEN ALEJO ([id number]) on 03/19/2021 9:39:13 AM Referred By: BK Confirmed By:TAYLA CRESPO MD
--- NOTE | 2021-03-17 13:18 | RAD_ITS ---
STUDY: X-RAY CHEST REASON FOR EXAM: Female, 65 years old. Chest pain TECHNIQUE: Frontal view of the chest COMPARISON: 12/12/20 FINDINGS: The lungs are clear. Again noted is an azygos fissure. There are no pleural effusions. There is no pneumothorax. The heart is normal in size. The visualized osseous structures are within normal limits. RAD/Chest 1 View (Portable) IMPRESSION: No acute thoracic pathology. Electronically Signed: Sergio Kumar MD at 13:42 EST Tel , Service support ,
[2021-03-17] MEDS: Aspirin 81 MG TAB.CHEW 324 MG PO (13:27)
[2021-03-17 13:30] LABS: Absolute Lymphocyte Count 1.81 X10^3/uL (0.83-4.51); Absolute Neutrophil Count 3.2 X10^3/uL (2.0-7.7); Basophil# 0.02 X10^3/uL; Basophil% 0.4 % (0-1); Eosinophil# 0.03 X10^3/uL; Eosinophils% 0.6 % (0-5); Hematocrit 36.7 % (37-47); Hemoglobin 12.4 g/dL (12.0-15.0); Lymphocyte # 1.81 X10^3/ul (0.83-4.51); Lymphocyte % 33.3 % (19-41); Mean Corp Hgb Conc 33.8 g/dL (32-36); Mean Corpuscular Hgb 32.6 pg (27.0-32.0); Mean Corpuscular Volume 96.6 fL (81-99); Mean Platelet Vol. 10.3 fl (6.2-12.0); Monocyte# 0.42 X10^3/uL; Monocyte% 7.7 % (0-10); NRBC Flagged by Analyzer 0 % (0-5); Neutrophil # 3.15 X10^3/uL (2.7-7.7); Neutrophil % 57.8 % (47-70); Platelet Count 185 K/mm3 (150-450); RBC Distribution Width CV 12.3 % (11.6-14.6); RBC Distribution Width SD 43.9 fl (35.1-43.9); White Blood Count 5.4 K/mm3 (4.4-11.0)
[2021-03-17 13:50] LABS: Anion Gap 8 (5-15); BUN 14 mg/dL (7-18); BUN/Creat Ratio 16.1 RATIO (10-20); Chloride 102 mmol/L (98-107); Creatinine, Serum 0.87 mg/dL (0.55-1.02); EST Glomerular Filtration Rate 69 mL/min (>60); Est Glom Filt Rate - Afr Amer 84 mL/min (>60); Estimated Creatinine Clearance 50.31 ml/min; Free T3 2.6 pg/mL (2.18-3.98); Glucose 102 mg/dL (74-106); Potassium 4.2 mmol/L (3.5-5.1); Sodium Level 135 mmol/L (136-145); T4 Free Direct 1.01 ng/dL (0.76-1.46); Thyroid Stim Hormone (TSH) 1.23 uIU/mL (0.358-3.74); Troponin-I HS 5 pg/mL (3.0-54.0)
[2021-03-17 14:08] VITALS: BP 163/77; PULSE 76; RESP 17; O2SAT 98
--- NOTE | 2021-03-17 14:49 | EDS_ITS ---
HPI History of Present Illness Chief Complaint: Chest Pain Narrative Narrative: 65-year-old female presenting with generalized weakness for about a week. She recently had thyroidectomy. At [facility]. Initially she felt well and she just felt generally weak throughout the week. She has difficulty eating but is not nauseous or vomiting. She states that she is not weak enough to fall. She states that she has been trying to eat but just cannot make her self. She had a boost last night and stated that it made her belch a lot but other than that she kept it down. She denies fever or chills. She denies constipation or diarrhea. She denies chest pain or shortness of breath. [facility] Medical History Osteoporosis Tami-rectal abscess Smoker Vertigo Home Medications ondansetron 4 mg PO Q8H PRN PRN #10 tab 12/19/17 [Rx Last Taken Unknown] Calcium 600 + D(3) 1 ea PO BID 04/01/18 [History Last Taken 12/12/20 09:00] lidocaine 1 applic TOPICAL PRN PRN 04/01/18 [History Last Taken Unknown] omeprazole 40 mg PO DAILY 12/13/20 [History Last Taken 12/12/20 09:00] Allergy/AdvReac Type Severity Reaction Status Date / Time amoxicillin Allergy Hives Verified 03/17/21 12:58 clindamycin AdvReac Abd Verified 03/17/21 12:58 cramps/diarrhea codeine AdvReac Other Verified 03/17/21 12:58 STEROIDS Allergy Hives Uncoded 03/17/21 12:59 Family History Other Alzheimer's dementia CVA (cerebral vascular accident) Heart disease Social History Smoking Status: Current every day smoker tobacco type: cigarettes ROS ROS ED ROS Narrative Generalized weakness Constitutional Constitutional ED: Denies chills or fever(s) Eyes Eyes: Denies blurry vision or change in vision ENT ENT ED: Denies rhinorrhea or sore throat Cardiovascular Cardiovascular: Denies chest pain Respiratory/Chest Respiratory/Chest: Denies cough or dyspnea Gastrointestinal Gastrointestinal: Reports other Details: Decreased appetite ; Denies abdominal pain, nausea or vomiting Genitourinary Genitourinary ED: Denies dysuria or hematuria Musculoskeletal Musculoskeletal: Denies arthralgias or myalgias Integumentary Denies rash Neurologic Neurologic: Denies headache(s), paresthesias or weakness Psychiatric Psychiatric: Denies anxiety or depression EXAM Physical Exam Const Vital Signs: 03/17/21 12:53 03/17/21 12:59 03/17/21 13:23 Temperature 97.7 F L Temperature Source Oral Pulse Rate 72 Respiratory Rate 19 H Respiratory Effort Normal Non-Labored Blood Pressure 160/69 H Blood Pressure Mean 99 Pulse Ox 98 Oxygen Delivery Method Room Air Room Air 03/17/21 14:08 Temperature Temperature Source Pulse Rate 76 Respiratory Rate 17 Respiratory Effort Blood Pressure 163/77 H Blood Pressure Mean 105 Pulse Ox 98 Oxygen Delivery Method Room Air Positive well developed General Appearance ED: well developed and NAD; Negative for pallor HEENT Reports normocephalic, head/scalp atraumatic and moist mucous membranes Eyes PERRL and EOMs intact bilaterally Neck no lymphadenopathy and supple Chest Wall inspection of chest normal and palpation of chest normal Resp normal respiratory effort and clear to auscultation bilaterally Auscultation: Negative for rales, rhonchi or wheezes Cardio regular rate and regular rhythm GI Auscultation: normoactive bowel sounds Palpation: soft Narrative: Deferred Extremity normal to inspection General Extremety ED: Yes edema and tenderness General Extremity: edema Neuro oriented x3 and CN's II-XII intact bilaterally Sensorium / Orientation: alert Motor Exam: strength 5/5 throughout Psych mental status grossly normal Attitude: No agitated Skin no rashes or lesions noted and no wounds General Skin Exam: Negative for jaundice or pallor MDM MDM MDM Narrative Medical decision making narrative: Patient presenting with generalized weakness since she had surgery to have her thyroid removed. Her CBC is within normal limits. BMP is also normal. High-sensitivity troponin is five. TSH is 1.23, free T4 1.06, free T3 2.6 knees are all within normal limits. Chest x-ray interpreted by myself shows no acute cardiopulmonary process and the radiologist agree. EKG interpreted by myself shows a normal sinus rhythm with ventricular rate of 69 bpm without signs of ischemic change or dysrhythmia. Rapid COVID is negative. At this point with the patient's negative work-up I feel the patient is safe to be discharged home. She states she has follow-up with Dr. Rocha next week to recheck her thyroid studies. She is counseled to drink plenty of fluids and try to get some nutrition into her. Check nausea understanding. Impression: 1. Generalized weakness 2. Decreased appetite Lab Data Labs: Laboratory Results - last 24 hr 03/17/21 03/17/21 13:02 13:02 WBC 5.4 RBC 3.80 L Hgb 12.4 Hct 36.7 L MCV 96.6 MCH 32.6 H MCHC 33.8 RDW Std Deviation 43.9 RDW Coeff of Mari 12.3 Plt Count 185 MPV 10.3 Immature Gran % (Auto) 0.200 Neut % (Auto) 57.8 Lymph % (Auto) 33.3 [place] % (Auto) 7.7 Eos % (Auto) 0.6 Baso % (Auto) 0.4 Absolute Neuts (auto) 3.2 Absolute Lymphs (auto) 1.81 Nucleated RBC % 0 Sodium 135 L Potassium 4.2 Chloride 102 Carbon Dioxide 25.0 Anion Gap 8 BUN 14 Creatinine 0.87 Estim Creat Clear Calc 50.31 Est GFR (MDRD) Af Amer 84 Est GFR (MDRD) Non-Af 69 BUN/Creatinine Ratio 16.1 Glucose 102 Calcium 9.0 Troponin I High Sens 5 TSH 1.23 Free T4 1.01 Free T3 pg/dL 2.6 Radiography Diagnostic Testing: Clinical Impression(s) from Imaging Studies Chest X-Ray 03/17/21 13:18 IMPRESSION: No acute thoracic pathology. Electronically Signed: Sergio Kumar MD at 13:42 EST Tel , Service support , Discharge Plan Triage Chief Complaint: Chest Pain ED Provider: Nakul Desai Dx/Rx/DC Orders Instructions: ED Weakness (Uncertain Cause) Prescriptions: No Action ondansetron 4 MG tablet 4 mg PO Q8H PRN PRN (Reason: Nausea) Qty: 10 RF: 0 Calcium 600 + D(3) 1 EACH tablet 1 ea PO BID RF: 0 lidocaine 35 GM ointment 1 applic topical PRN PRN (Reason: Headache) RF: 0 omeprazole 40 mg capsule,delayed release(DR/EC) 40 mg PO DAILY RF: 0 Primary Care Provider: Sherman Rocha Referrals: Sherman Rocha DO [Primary Care Provider] - Disposition Disposition: Home, Self Care
[2021-03-17 15:05] VITALS: BP 145/82; PULSE 81; RESP 18; O2SAT 97
== END 2021-03-17 15:06 | disposition home or self-care (01) ==
PROVIDERS: Emergency Provider Student in an Organized Health Care Education/Training Program; PCP Student in an Organized Health Care Education/Training Program; Visit Provider Student in an Organized Health Care Education/Training Program
DX: R53.1 Weakness (principal); R63.8 Other symptoms and signs concerning food and fluid intake; F17.210 Nicotine dependence, cigarettes, uncomplicated
CPT/HCPCS: 71045; 80048; 84439; 84443; 84481; 84484; 85025; 87426; 93005; 99285

== ENCOUNTER 2021-05-01 17:30 | Outpatient (RCR) | payer MEDICARE, SELFPAY ==
--- NOTE | 2021-03-25 15:59 | HP.PTEVAL_ITS ---
Patient's Visit Information PAMELA SAUER is a 65 year old F referred to Physical Therapy by MISBAH Taylor with a diagnosis of R cervical radiculopathy.. Date of Evaluation: 03/25/21 Physical Therapist: Randal Guadalupe, NICOLA, OCS, CSCS - Visit Plan Frequency: 2-3x /Week Duration: 4-6 Weeks Plan: 2-3x/week for 4 weeks for. 1. cervical desensitazation massage to R paraspinals. 2. strengthen isometrics of neck and postural /UE strength to HEP when able. 3. PROM R scap and cerevical R rotation and ext to compliment home AROM. 4. Blance ex progression with ec to HEP - Subjective H/o neck trouble casuing dizzyness and neck pain and had therapy last year., which only helped a little. Nerve ablations in neck in January due to neck pain and vertigo. Resolved most of vertigo, made her very weak in neck. Pain is only now and then here and there. feels lopsided with R scap lower than L and rotated forward. Tried exercises with the chiropractor but did not help. Has tenderness in R UT area if she is touched. Had 1/2 thyroid removed in [facility] also so had posterior ad anterior surgery. Feels like a bobble head much of time. Very little pain and no dizzyness. Sleep is intrrupted due to some muscle achyiness and has tosleep on side and head falls forward. Retired. 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 Dresses self. 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 Stayed in bed for long time after surgery. Wants to get back to texting comfortably and without bobblehead. Doing some home stretches. with 25 second hold, c/s flexion, extension, lev scap, UT, rotations Doing 1x multiple times throughout day. - Pain neck Pain Intensity (Out of 10): 0 Pain Intensity Range: 0, 4 Comment: tender if touched. - Objective Short steps but I gait in and out of PT. Trasnfers I. See FGA for balance. Cervical aROM 30 R rotation and 50 L rotation, no pain. SB symmetrical at 20, ext 33 degrees no pain, full flexion. scap aROM depression and retraction limited B. Posture is forward head and forward scapula and slightly depressed on R vs L. UE AROM WFL but stiff with shoulder flexion. AROM shoulder 30 ext rotation B otherwise WFL. elbows and wrists WFL. reflexes 2/3 bi and triceps. Sensation UE WNL. strength EU 4-/5, neck isometrics 3/5 no pain. tender to touch R paraspinals and subocc max. - c/s compression - Balance/Special Test Scores Functional Gait Assessment Score: 23 % Disability: 23.3400 Oswestry Neck Score: 26 - Goals Goal 1:: Sleep without waking Goal Time Frame: 4-6 Weeks Goal 2:: Confident with showering I Goal Time Frame: 4-6 Weeks Goal 3:: Pt feel wobble head is 75% improved Goal Time Frame: 4-6 Weeks Goal 4:: 30 FGA to improve confidence. Goal Time Frame: 4-6 Weeks Goal 5:: I appropr HEP to continue to make progress on own. Goal Time Frame: 4-6 Weeks - Rehabilitation Potential Physical Therapy Diagnosis: weakness and diminsihed proprioception from recent history. Rehabilitation Potential: Fair - Anticipated Interventions Patient/Client Instruction: Educate patient on: Condition, Plan of Care For the Purpose of:: To decrease pain, To increase ROM, To improve muscle performance and motor function, To increase tolerance to activity/condition/position, To improve ability of physical actions for home/community/work/leisure, To improve balance Therapeutic Exercise to Include: Strength training, Balance training, Postural training, Flexibilty training, Gait and locomotor training, Passive ROM, Active ROM, Scapular Strength/Stabilization For the Purpose of:: To decrease pain, To increase ROM, To improve muscle performance and motor function, To increase tolerance to activity/condition/position, To improve ability of physical actions for home/community/work/leisure, To improve gait and locomotor functions Manual Therapy Techniques to Include: Soft tissue mobilization For the Purpose of:: To improve nutrient delivery to tissue Thank you for the opportunity to evaluate your patient. For Medicare and Medicare HMO plans, please review the plan of care and approve it. It will need to be FAXED BACK to us at [phone] for Medicare purposes. For Medicare only, by signing this I certify the plan of care. Please let me know if there are questions or concerns regarding this plan of care. Physician Signature: Date:
--- NOTE | 2021-05-01 19:09 | HP.PTDCSUM_ITS ---
It has been my pleasure to treat PAMELA SAUER referred by LORIN Taylor, with the diagnosis of R cervical radiculopathy. for a total of 9 visit(s). Discharge Date: 05/01/21 Please see the following information for a summary of their discharge status. Subjective: Has done well. Made some changes stopping walking and turning ex. Moved bands back down to 30 and worked up to 40 with OTB. I am driving again. [place] better after last session and since last session. Neck can hurt in middle and both sides but minimal. Embroidered blanket the other day which required time on computer. neck Pain Intensity (Out of 10): 1 % Improvement: 90 Objective/Function: 77 B cervical rotation and 68 ext without pain. Full UE AROM without pain. Balance is good with 180 degree turns today. Very little tenderness in neck, subocc and scapular muscles. Overall significant impr ovements. Goal 1:: Sleep without waking Goal Progress: Goal Met Goal 2:: Confident with showering I Goal Progress: Goal Met Goal 3:: Pt feel wobble head is 75% improved Goal Progress: Goal Met Goal 4:: FGA to improve confidence. Goal Progress: Goal Met Goal 5:: I appropr HEP to continue to make progress on own. Goal Progress: Goal Met Plan: d/c If there are questions or concerns regarding this patient's physical therapy, please feel free to call me at [phone]. Thank you for the referral of this patient. Sincerely, Randal Guadalupe, DPT, OCS, CSCS Balance/Gait/Functional tests - Balance/Special Test Scores Functional Gait Assessment Score: 29 % Disability: 3.3400 Oswestry Neck Score: 16
== END 2021-05-01 19:00 | disposition home or self-care (01) ==
LOC: PT 17:30
PROVIDERS: PCP Student in an Organized Health Care Education/Training Program; Referring Provider Nurse Practitioner Family; Visit Provider Nurse Practitioner Family
DX: M25.511 Pain in right shoulder (principal); M47.812 Spondylosis without myelopathy or radiculopathy, cervical region; M48.02 Spinal stenosis, cervical region; M50.30 Other cervical disc degeneration, unspecified cervical region; M54.12 Radiculopathy, cervical region; M48.9 Spondylopathy, unspecified
CPT/HCPCS: 97110; 97140; 97162; 97164; 97530

== ENCOUNTER 2022-10-22 17:00 | Outpatient (RCR) | payer MEDICARE, SELFPAY ==
--- NOTE | 2022-10-06 13:27 | HP.PTEVAL_ITS ---
Patient's Visit Information Visit Information Visit Information: PAMELA SAUER is a 67 year old F referred to Physical Therapy by Dr. Sherman Rocha DO with a diagnosis of Left Shoulder Pain. 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 She has pain right along the anterior portion of the humerus- feels like a muscle spasm that locks- it comes and goes. It is triggered by having her elbow bent and then taking it up and over her head- or reaching for something over her head. It locks up and she can't move it. If she stops what she is doing it will loose but its still just tender. It has only radiated past the elbow one time and that was 3 weeks ago- does not radiate into the shoulder joint. No pain in the neck or shoulder blade. She has nerve ablations on her other side of her neck and shoulder for about 2 years- and that has really helped. Right hand dominate. 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 She does silver sneakers at home online- She doesn't feel like her left bicep is getting any stronger but her right is getting stronger. They have done x-rays on the shoulder-image showed spurring and narrowing-done at [place]. She does have some wrist issues with arthritis. Worst: 10/10. Best: 0/10. No N/T in the hand. Massage was finding knots that she did have before that was triggering in her scapula. Fully I with ADL's and driving. She is normally pretty active. She was in bed for almost 9 months- Sleep: side- it will wake her up PMHx/Meds: on her phone. Objective Objective: Posture: FH, RS- does guard her left UE Gait: decreased arm swing of the left UE Palpation: tender along medial border of the scapula- trigger points throughout scapula- bicipital groove- upper trap, AC joint and down the biceps- deltoid ROM: cervical: WFL, Shoulder: Flexion with painful arc, abd: with pain from 90 degrees to 120 degrees, IR: no pain WFL, ER: 50 degrees with pain. Elbow: WFL Strength: Scap: poor, Shoulder: Isometric at neutral: 4+/5 no pain, IR/ER: 90/90 3+/5 with pain, Elbow: 4/5 with pain, Wrist: 4/5 Out Patient Therapist: equal to right Special Tests L Shoulder Empty Can - SS: Positive L Shoulder Belly Press - SupScap: Positive L Shoulder Neer - Impingement: Positive L Shoulder Rose Lloyd - Impingement: Positive L Shoulder Biceps Load Test - Labrum: Positive L Shoulder Speeds Test - Labrum/Biceps: Positive Balance/Special Test Scores Quick DASH Score: 12.5000 Goals Goal 1:: Patient will be I with HEP and progression Goal Time Frame: 4-6 Weeks Goal 2:: Patient will maintain proper posture t/o tx session to demo increased scap s/s Goal Time Frame: 4-6 Weeks Goal 3:: Patient will report full AROM of the left shoulder without pain Goal Time Frame: 4-6 Weeks Goal 4:: Patient will report 80% improvement Goal Time Frame: 4-6 Weeks Rehabilitation Potential Physical Therapy Diagnosis: Patient presents with hypomobility- she has decreased UE pain free ROM, UE and scapular strength/stabilization, muscular endurance leading to increased pain with ADL's. Rehabilitation Potential: Good Anticipated Interventions Patient/Client Instruction: Educate patient on: Benefits of Fitness Program Therapeutic Exercise to Include: Strength training, Endurance training, Coordination, Agility training, Body mechanics, Postural training, Flexibilty training, Passive ROM, Active ROM, Dynamic Lumbar Stabilization and Scapular Strength/Stabilization TENS: Yes Cryotherapy (ice pack, ice massage): Yes Thermo therapy (hot pack): Yes Ultrasound (thermal/non thermal): Yes Text: Thank you for the opportunity to evaluate your patient. For Medicare and Medicare HMO plans, please review the plan of care and approve it. It will need to be FAXED BACK to us at [phone] for Medicare purposes. For Medicare only, by signing this I certify the plan of care. Please let me know if there are questions or concerns regarding this plan of care. Physician Signature: Date:
== END 2022-10-22 19:00 | disposition home or self-care (01) ==
LOC: PT 17:00
PROVIDERS: PCP Student in an Organized Health Care Education/Training Program; Referring Provider Student in an Organized Health Care Education/Training Program; Visit Provider Student in an Organized Health Care Education/Training Program
DX: M25.512 Pain in left shoulder (principal)
CPT/HCPCS: 97110; 97162

== ENCOUNTER → 2024-07-03 | Outpatient (CLI) | payer MEDICARE, SELFPAY ==
[2024-07-03 16:38] LABS: Creatinine, Serum 0.79 mg/dL (0.70-1.20); EST Glomerular Filtration Rate 81 (>60)
== END | disposition home or self-care (01) ==
LOC: MTLAB 12:33
PROVIDERS: PCP Student in an Organized Health Care Education/Training Program; Referring Provider Urology; Visit Provider Urology
DX: R31.29 Other microscopic hematuria (principal)
CPT/HCPCS: 36415; 82565

== ENCOUNTER → 2024-07-19 | Outpatient (CLI) | payer MEDICARE, SELFPAY ==
--- NOTE | 2024-07-19 16:10 | CT_ITS ---
PROCEDURE: CT ABD/PELVIS W/WO CONTRAST 07/19/2024 REASON FOR EXAM: MICROHEMATURIA TECHNIQUE: Abdomen and pelvis CT with and without intravenous contrast. Coronal and Sagittal reconstruction series were provided. PATIENT PREPARATION: Per protocol CONTRAST: 99 mL Isovue 300 One or more dose reduction techniques were used (e.g., Automated exposure control, adjustment of the mA and/or kV according to patient size, use of iterative reconstruction technique. RADIATION DOSE SUMMARY: CTDlvol: 13.3 mGy DLP: 1180 mGycm COMPARISON: None FINDINGS: Lung bases: Unremarkable Liver: Hypodense lesion in the left hepatic lobe measuring 2.6 cm demonstrates discontinuous nodular enhancement on the portal venous phase and fill-in on the delayed phase, most suggestive of a hemangioma. Additional subcentimeter hypodensities are too small to characterize, likely simple cysts. Gallbladder: Collapsed, limiting evaluation. Spleen: Unremarkable Pancreas: Normal size without evidence of mass surrounding inflammation or ductal dilation. Adrenals: Unremarkable Kidneys: No hydronephrosis or stone. Subcentimeter hypodensity in the right kidney is too small to characterize, likely simple cyst. No suspicious renal mass. Ureters: No hydroureter. No filling defect identified on the delayed phase. Bladder: Limited evaluation due to incomplete distention and minimal opacification on the delayed phase. Reproductive Organs: Unremarkable Bowel: No obstruction. There is diffuse gastric wall thickening, measuring up to 2.0 cm. Normal appendix. Lymph nodes: No significant lymphadenopathy. Vasculature: Diffuse atherosclerotic calcifications are noted. Prominent veins within the pelvis. Bones: Degenerative changes of the spine. Soft tissues: Ovoid hypodensity deep to the umbilicus measuring up to 2.[address]/CT Abd/Pelvis W/WO Contrast IMPRESSION: 1. No findings to account for the reported symptoms of hematuria, to include n o urinary stone. 2. Diffuse gastric wall thickening, which could be related to underdistention, though gastritis or neoplasm could appear similar. Correlate with symptoms and exam. 3. Prominent veins within the pelvis, as can be seen with pelvic congestion sy ndrome. 4. Left hepatic lobe lesion measuring 2.6 cm demonstrates imaging characterist ics most consistent with a hepatic hemangioma. Reading Location: [id number]
== END | disposition home or self-care (01) ==
LOC: CT 16:07
PROVIDERS: PCP Student in an Organized Health Care Education/Training Program; Referring Provider Urology; Visit Provider Urology
DX: R31.29 Other microscopic hematuria (principal)
CPT/HCPCS: 74178; Q9967

== ENCOUNTER 2024-08-11 11:00 | Outpatient (CLI) | payer MEDICARE, SELFPAY ==
--- NOTE | 2024-08-15 07:41 | EKG12_ITS ---
Test Reason : PRE OP Blood Pressure : */* mmHG Vent. Rate : 68 BPM Atrial Rate : 68 BPM P-R Int : 188 ms QRS Dur : 78 ms QT Int : 386 ms P-R-T Axes : 75 -44 67 degrees QTcB Int : 410 ms Normal sinus rhythm Left axis deviation Abnormal ECG Confirmed by ANNA CHURCH, LINWOOD ([id number]), publications editor JUAN CRISTINA ([id number]) on 08/16/2024 7:03:51 AM Referred By: Chelsea Holley Confirmed By: LINWOOD CASTILLO MD
[2024-08-15 09:15] LABS: Hematocrit 34.6 % (37-47); Hemoglobin 11.7 g/dL (12.0-15.0); Mean Corp Hgb Conc 33.8 g/dL (32-36); Mean Corpuscular Hgb 32.3 pg (27.0-32.0); Mean Corpuscular Volume 95.6 fL (81-99); Mean Platelet Vol. 11.3 fl (6.2-12.0); Platelet Count 198 K/mm3 (150-450); RBC Distribution Width CV 13.5 % (11.6-14.6); RBC Distribution Width SD 47.8 fl (35.1-43.9); Red Blood Count 3.62 M/mm3 (4.2-5.4); White Blood Count 5.3 K/mm3 (4.4-11.0)
[2024-08-15 09:56] LABS: Anion Gap 9 (5-15); BUN 27 mg/dL (4-19); BUN/Creat Ratio 42.7 RATIO (10-20); Calcium,Total 9.2 mg/dL (7.6-11.0); Carbon Dioxide 24.5 mmol/L (21.0-32.0); Chloride 106 mmol/L (98-108); Creatinine, Serum 0.64 mg/dL (0.70-1.20); EST Glomerular Filtration Rate 95 (>60); Glucose 100 mg/dL (70-99); Potassium 4.2 mmol/L (3.3-5.1); Sodium Level 139 mmol/L (133-145)
== END 2024-08-11 19:00 | disposition home or self-care (01) ==
LOC: SDC 01-11 10:16
PROVIDERS: PCP Student in an Organized Health Care Education/Training Program; Referring Provider Urology; Visit Provider Urology
DX: Z01.818 Encounter for other preprocedural examination (principal)
CPT/HCPCS: 36415; 80048; 85027; 93005; J0744